=== PATIENT | male | born 1960 | race Caucasian/White ===

== ENCOUNTER → 2024-06-01 13:12 | Outpatient (REF) | payer MEDICARE, SELFPAY | LOC: ANHLAB 13:12 | PROVIDERS: Visit Provider Plastic Surgery | DX: D03.4 Melanoma in situ of scalp and neck (principal) | CPT/HCPCS: 88305 ==

== ENCOUNTER 2024-11-11 12:29 | Outpatient (NON) | payer MEDICARE, SELFPAY ==
--- OUTSIDE RECORDS SUMMARY | 2024-11-12 12:50 | XMS_ITS | Continuity of Care Document ---
Author Organization [facility] Address [address] [place] [address] Phone Care Team Providers Care Cold Roll Inspector Name Role Phone Sindhu Garza DO Unavailable Unavailable Allergies, Adverse Reactions, Alerts Substance Reaction Status Criticality No Known Drug Allergies Active No I nformation Medications Medication Instructions Dosage Effective Dates (start - stop) Status Comments No Drug Therapy Prescribed Procedures Procedure Date Audiometric Test DOT Exam Audiometric Test RTW Exam Audiometric Test Advance Directives Directive Yes / No Effective Date File Name No Information Encounters Encounter Description Practice Location Reason(s) For Visit Diagnoses Date Provider Providers Copied on Encounter [facility], [address] [place] [address], [id number], tel:[phone] [facility] Audiogram (chief complaint) Encounter for other administrative examinations 6 Greg Manley. [address] [facility], [address], [id number] , [place]. tel: [phone] [facility], [address] [place] [address], [id number], [place] tel:[phone] [facility] Occupational Health Examination 5 Greg Manley. [address] [facility], [facility] [address], [place], [id number] , [place]. tel: [phone] [facility], [address] [place] [address], [id number], [phone] [facility] Occupational [facility] Examination 1- 5 Greg Manley. [address] [facility], [address], [place], [place], [id number] , . tel: [phone] [facility], [address] [facility] [address], [place], [id number], tel:[phone] [facility] Occupational Health Examination 5 Greg Manley. [address] [facility], [address], [place], [place], [id number] , [place]. tel: [phone] [facility], [address], [id number], tel:[phone] [facility] Occupational Health Examination 4 Greg Manley. [address] [facility], [place] [address], [place], [place], [id number] , . tel: [phone] Family History Family Member Type Diagnosis Age At Onset Problem (finding) Family history of Arthr itis Mother Problem (finding) renal stone Father Problem (finding) malignant neoplasm of l tomy Payers Payer name Insurance type Covered alliance party ID Thi plasencia(s) I WC [id number] Social History Type Description Quantity Date Captured Comments Alcohol Use Details Caffeine Use Details Unknown Tobacco Use Status No Information Smoking Status Former smoker Smoking Tobacco Use Details Cigar: No Details Available Cigar: No Details Available Non-Smoking Tobacco Use Details Chewing: No Details Available Chewing: No Details Available Sex Male Chief Complaint And Reason For Visit From encounter dated '02/16/2016 08:30'. Audiogram (chief complaint) Reason For Referral Reason For Referral No Information History Of Present Illness Encounter Date Complaint History Of Prese nt Illness Audiogram Functional Status Date Functional Assessmen t No Information Medications Administered Medication Instructions Dosage Effective Dates (start - stop) Status Comments No Drug Therapy Prescribed Instructions Date Instruction Additional Infor mation No Information Assessments Type Assessment Date assessment Encounter for other administrati ve examinations Patient Care Teams Name Effective Dates (start - stop) Status Members No Information
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
--- OUTSIDE RECORDS SUMMARY | 2024-11-12 12:50 | XMS_ITS | Clinical Summary ---
Author Organization [facility] Address [address] [place] [address] Phone Care Team Providers Care Media Intern Name Role Phone Paulette Oviedo Primary Care Provider [phone] Allergies Active Allergy Reactions Criticality Noted Date Comments Chlorhexidine Rash 08/23/2016 Medications traMADol (ULTRAM) 50 MG Tablet Take 1 Tab by mouth 2 times daily. 60 Tab 7 Active Additional Information Patient not taking.Reported on 10/26/2021 lansoprazole (PREVACID) 15 MG CAPSULE DELAYED RELEASE Take 1 Cap by mouth daily. 90 Cap 3 7 Active Additional Information Patient not taking.Reported on 05/02/2022 Meloxicam 15 MG Tablet TAKE 1 TABLET DAILY 90 Tab 8 Active rosuvastatin (CRESTOR) 20 MG Tablet Take 1 Tab by mouth daily. 90 Tab 8 Active fluticasone (FLONASE) 50 MCG/ACT Suspension USE 1-2 SPRAYS IN EACH NOSTRIL DAILY 1 Bottle 8 Active Additional Information Patient not taking.Reported on 05/02/2022 cholecalciferol 25 mcg Tablet Take 1,000 Units by mouth. 9 Active lisinopril (PRINIVIL, ZESTRIL) 5 MG Tablet 2 Active acetaminophen (TYLENOL) 325 MG Tablet Take 650 mg by mouth. 0 Active Active Problems Problem Noted Date Diagnosed Date Chronic pain of right ankle 08/23/2016 Overview (08/23/2016): Dr. Holland Kidney stones 08/23/2016 High cholesterol Acid reflux Immunizations Immunization Administration Dates Next Due Influenza Vaccine,unspecified Formulation 2008 TDAP Vaccine 12/05/2019() Family History Medical History Relation Name Comments Emphysema Father Hypertension Mother Relation Name Status Comments Father Mother Alive Social History Tobacco Use Types Packs/Day Years Used Date Smoking Tobacco: Never Smokeless Tobacco: Former Chew Tobacco Cessation:Counseling Given: Not Answered Alcohol Use Standard Drinks/Week Comments Yes 14 (1 standard drink = 0.6 oz pu re alcohol) Sexually Active Control Partners Comments Yes Female Sex and Gender Information Value Date Recorded Sex Assigned at Not on file Legal Sex Male 7:49 PM CDT Gender Identity Not on file Sexual Orientation Not on file Last Filed Vital Signs Vital Sign Reading Time Taken Comments Blood Pressure 132/78 10/31/2022 9:05 AM MANAGER DIESEL Pulse 96 10/31/2022 9:05 AM MANAGER DIESEL Temperature 36.2 C (97.2 F) 10/31/2022 9:05 AM MANAGER DIESEL Respiratory Rate 18 10/31/2022 9:05 AM MANAGER DIESEL Oxygen Saturation 96% 10/31/2022 9:05 AM MANAGER DIESEL Inhaled Oxygen Concentration - - Weight 83.9 kg (185 lb) 10/31/2022 9:05 AM MANAGER DIESEL Height 180.3 cm (5' 11 ) 10/31/2022 9:05 AM MANAGER DIESEL Body Mass Index 25.8 10/31/2022 9:05 AM MANAGER DIESEL Plan of Treatment Health Maintenance Due Date Last Done Comments Hepatitis C Virus (HCV) Screening 1959 Cologuard 2009 Immunochemical Fecal Occult Blood 2009 Pneumococcal Immunization (50+ years) (1 of 1 - PCV) 2009 Colonoscopy 11/16/2022 11/16/2012 Colorectal Cancer Screening 11/16/2022 Influenza Immunization (#1) 2024 11/0 01/2020, 07/02/2019, 06/20/2019, Additional history exists SARS-COV-2 Immunization (3 - 2023- season) 2024 01/16/2021, 12/26/2020 Respiratory Syncytial Virus (RSV) Immunization (Adult) (1 - 1-dose 75+ series) 2034 11/16/2012 TdaP Immunization Completed 12/05/2019, 04/22/2019 Zoster Immunization Completed 09/12/2020, 0 PSA Discussion Completed 10/31/2022, 11/06, 09/10/2016, Additional history exists Hepatitis B Immunization Aged Out No longer eligible based on patient's age to complete this topic Meningococcal Immunization (ACWY) Aged Out No longer eligible based on patient's age to complete this topic Rotavirus Immunization Aged Out No lo nger eligible based on patient's age to complete this topic Procedures Procedure Name Priority Date/Time Associated Diagnosis Comments PSA DIAGNOSTIC,TOTAL Routine 10/31/2022 9:39 AM MANAGER DIESEL Prostate cancer screening COLONOSCOPY Routine 11/16/2012 from Last 3 Months or Most Recently Relevant to Health Maintenance Results * PSA DIAGNOSTIC,TOTAL (10/31/2022 9:39 AM MANAGER DIESEL) PSA, TOTAL (PROSTATIC SPECIFIC ANTIGEN) 2.03 <=4.00 ng/mL 10/31/2022 10:21 AM MANAGER DIESEL [facility] Blood Venipuncture / Unknown 10/31/2022 9:39 AM MANAGER DIESEL 10/31/2022 9:47 AM MANAGER DIESEL Narrative [facility] - 10/31/2022 10:21 AM MANAGER DIESEL PSA NOTE: The PSA value should be used in conjunction with information available from clinical evaluation and other diagnostic procedures. Ankush Guo MD CHEMISTRY ORDERABLES Final Resul t [facility] [address] [place] [address] * COLONOSCOPY (11/16/2012) us Mitchell Morris Jr., MD PROCEDURE/M INOR SURGICAL ORDERABLES Edited Result - Final from Last 3 Months or Most Recently Relevant to Health Maintenance Insurance MEDICARE C [employer]ET[employer] Advance Directives Documents on File Type Date Recorded Patient Hide Inspector And Sorter Expl anation Advance Care Planning Discussion 10/26/2021 11:19 AM TY FROM [facility] Care Teams Media Intern Relationship Specialty Start Date End Date Paulette Oviedo DO [address] [place] [address] [place] [address] PCP - General Family Medicine 08/01/21
--- OUTSIDE RECORDS SUMMARY | 2024-11-12 12:50 | XMS_ITS | Clinical Summary ---
Author Organization [facility] Address [address] [place] [address] Care Team Providers Care Stripping Machine Operator Name Role Phone Paulette Oviedo DO Primary Care Provider [phone] Source Comments [facility],non-owned Affiliates and Associated Physician Practices is amultiple site organization consisting of ambulatory clinics and hospital sitesin [place], [place], [place] and [place]. This disclosure is being madepursuant to the Care Everywhere program and may not contain all information available regarding this patient. Last updated 18.[facility] Allergies Active Allergy Reactions Criticality Noted Date [...] Comments Blood Pressure 140/87 07/18/2020 8:34 AM VICE PRESIDENT OF COMMUNICATIONS Pulse 111 07/18/2020 8:34 AM VICE PRESIDENT OF COMMUNICATIONS Temperature 36.5 C (97.7 F) 07/18/2020 8:34 AM VICE PRESIDENT OF COMMUNICATIONS Respiratory Rate 19 07/18/2020 8:34 AM VICE PRESIDENT OF COMMUNICATIONS Oxygen Saturation 98% 07/18/2020 8:34 AM VICE PRESIDENT OF COMMUNICATIONS Inhaled Oxygen Concentration 50% 12/06/2019 1 0:50 AM CDT Weight 91.3 kg (201 lb 3.2 oz) 07/18/2020 8:34 A M VICE PRESIDENT OF COMMUNICATIONS Height 177.8 cm (5' 10 ) 07/18/2020 8:34 AM VICE PRESIDENT OF COMMUNICATIONS Body Mass Index 28.87 07/18/2020 8:34 AM VICE PRESIDENT OF COMMUNICATIONS Plan of Treatment Health Maintenance Due Date Last Done Comments COLOGUARD (AGES 45-75) - COLON CA SCREENING 1959 COLON MONITORING 1959 COLONOSCOPY - COLON CA SCREENING 1959 CT COLONOGRAPHY - COLON CA SCREENING 1959 Colorectal Cancer Screening 1959 FIT - COLON CA SCREENING 1959 FLEX SIG - COLON CA SCREENING 1959 HIV SCREENING 1974 HEPATITIS C SCREENING 07/19/1977 PNEUMOCOCCAL VACCINE 50+ (1 of 1 - PCV) 2009 ZOSTER VACCINE (1 of 2) 2009 SCREENING FOR DIABETES 12/07/2022 0, 12/07/2019, 12/07/2019, Additional history exists COVID-19 VACCINE (1 - 2023- season) 2024 INFLUENZA VACCINE (#1) 2024 0, 07/02/2019, 06/08/2018, Additional history exists DEPRESSION SCREENING 09/08/2024 MEDICARE AWV CALENDAR YEAR 2024 DTAP/TDAP/TD VACCINES (2 - Td or Tdap) 12/04/2029 12/05/2019 Respiratory Syncytial Virus (RSV) Vaccine Pt: or over 60 yrs (1 - 1-dose 75+ series) 2034 HEPATITIS B VACCINE Aged Out No longe r eligible based on patient's age to complete this topic HIB VACCINE Aged Out No longer eligi ble based on patient's age to complete this topic HPV VACCINE Aged Out No longer eligi ble based on patient's age to complete this topic MENINGOCOCCAL (Group B) VACCINE Aged Out No longer eligible based on patient's age to complete this topic MENINGOCOCCAL VACCINE Aged Out No siddharth ny eligible based on patient's age to complete this topic Procedures Procedure Name Priority Date/Time Associated Diagnosis Comments BASIC METABOLIC PANEL (CALCIUM TOTAL) Timed 12/08/2019 11:25 PM CDT from Last 3 Months or Most Recently Relevant to Health Maintenance Results * BASIC METABOLIC PANEL (CALCIUM TOTAL) (12/08/2019 11:25 PM CDT) BUN 7 7 - 26 mg/dL 12/08/2019 11:59 PM [facility] Creatinine 0.7 0.6 - 1.2 mg/dL 12/08/2019 11:59 PM [facility] Sodium 141 136 - 145 mmol/L 12/08/2019 11:59 PM [facility] Potassium 3.7 3.5 - 4.5 mmol/L 12/08/2019 11:59 PM [facility] Chloride 105 98 - 107 mmol/L 12/08/2019 11:59 PM [facility] CO2 24 22 - 29 mmol/L 12/08/2019 11:59 PM [facility] Glucose 104 70 - 115 mg/dL 12/08/2019 11:59 PM [facility] Calcium 8.8 8.4 - 10.2 mg/dL 12/08/2019 11:59 PM [facility] Anion Gap 16 8 - 18 12/08/2019 11:59 PM [facility] BUN/Creatinine Ratio 10 7 - 23 12/08/2019 11:59 PM [facility] Osmolality Calculated 290 270 - 300 mOsm/kg 12/08/2019 11:59 PM [facility] eGFR >60 >60 mL/min/1.7 3 m2 12/08/2019 11:59 PM CDT [facility] Blood BLOOD SPECIMEN / Unknown Lab Venipuncture / Unknown 12/08/2019 11:25 PM CDT 12/08/2019 11:36 PM CDT Trena Harrell MD LAB - CHEMISTRY [place] [facility] Organization Address City/State/ZIP Co de Phone Number [facility] [address] [phone] from Last 3 Months or Most Recently Relevant to Health Maintenance Advance Directives * Full Code (Latest Code Status on File) Date Activated Date Inactivated Comments 12/05/2019 9:26 PM 12/09/2019 4:44 PM Care Teams Stripping Machine Operator Relationship Specialty Start Date End Date Paulette Oviedo DO [facility] - General 01/18/20
--- OUTSIDE RECORDS SUMMARY | 2024-11-12 12:50 | XMS_ITS | CONTINUITY OF CARE DOCUMENT ---
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 Name Role Phone Shree LÓPEZ, Reynaldo Unavailable ANT WHITE MD Unavailable Cristian Jimenez MD Unavailable PROBLEMS Condition Status Date Provider Notes Cardiology examination active Reynaldo Swann MD Hyperlipidemia active Reynaldo Swann MD Hypertension active Reynaldo Swann MD Dyspnea on exertion active Reynaldo Swann MD Coronary arteriosclerosis active Reynaldo brown MD ENCOUNTERS Date Type Provider Location Encounter Diag nosis - In-person encounter Office Visit Reynaldo Swann MD [facility] - In-person encounter Office Visit Reynaldo Swann MD [facility] Coronary arteriosclerosis - In-person encounter Office Visit Reynaldo Swann MD [facility] Cardiology examinationHyperlipidemiaHypertensionDyspnea on exertion VITAL SIGNS Date Observation Value Provider Body Mass Index (Ratio) 26.50 kg/m2 Schuyler Swann MD blood pressure, cuff size regular Dayo Miller blood pressure, diastolic 84 mm[Hg] Dayo Miller blood pressure, systolic 120 mm[Hg] Tab alisha Miller oxygen saturation, oximetry 97 % Ana Paula Miller pulse rate 96 /min Ana Paula Miller weight E&M 190 [lb_av] Ana Paula Miller respiratory rate E&M 12 /min Ana Paula Miller height E&M 71 [in_i] Ana Paula Miller Body Mass Index (Ratio) 27.05 kg/m2 Rafaela Morrison blood pressure, cuff size large An manuel Jonah blood pressure, diastolic 81 mm[Hg] An manuel Jonah blood pressure, systolic 138 mm[Hg] Emiliana liu Jonah oxygen saturation, oximetry 96 % Bernice Jonah pulse rate 73 /min Bernice Jonah weight E&M 194 [lb_av] Bernice Jonah height E&M 71 [in_i] Bernicenoe Mckenzie Body Mass Index (Ratio) 27.47 kg/m2 Schuyler Swann MD blood pressure, diastolic 82 mm[Hg] [facility] blood pressure, systolic 132 mm[Hg] [facility] blood pressure, diastolic 82 mm[Hg] [facility] blood pressure, systolic 132 mm[Hg] Jes[facility] blood pressure, diastolic 82 mm[Hg] elizabeth Bocanegra blood pressure, systolic 132 mm[Hg] She fabiana Bocanegra blood pressure, cuff size regular elizabeth Bocanegra oxygen saturation, oximetry 98 % Nena Bocanegra pulse rate 75 /min Nena Bocanegra respiratory rate E&M 18 /min Nena Bocanegra height E&M 71 [in_i] Nena Bocanegra weight E&M 197 [lb_av] Nena Bocanegra ALLERGIES Allergy Name Onset Date Reaction Criticality Status HIBICLENS High Criticality active HISTORY OF MEDICATION USE Medication Status Instructions Dates Provider Indications Com ments rosuvastatin 20 mg tablet active Take 1 tablet by mouth once a day Ana Paulanoe Miller allopurinol 300 mg tablet active TAKE 1 TABLET BY MOUTH ONCE EVERY DAY Ana Paula Miller lisinopril 5 mg tablet active TAKE 1 TABLET BY MOUTH EVERY DAY Ana Paula meloxicam 15 mg tablet active TAKE 1 TABLET BY MOUTH EVERY DAY NEEDED Ana Paula Paul SOCIAL HISTORY Date Observation Value Provider passive cigarette sm viktoria exposure no Reynaldo Swann MD smoking status Never smoker Reynaldo Swann MD passive cigarette sm viktoria exposure no Reynaldo Swann MD social history E&M Marital Statu s: Hoang moreno: 2 O ccupation: Retired Smoking History: P atann has never smoked. Reynaldo Swann MD social history reviewed E&M revi ewed - no changes required Reynaldo Swann MD smoking status Never smoker Bernice Mckenzie social history E&M Marital Statu s: Hoang moreno: 2 O ccupation: Retired Smoking History: P atann has never smoked. Reynaldo Swann MD social history reviewed E&M revi ewed - no changes required Reynaldo Swann MD Surgical History of - Tonsillectomy Surgical History of - Tonsillectomy Reynaldo Swann MD smoking status Never smoker Nena Bocanegra FAMILY HISTORY Family Member Condition Father Family History of Co ronary Artery Disease: INSURANCE PROVIDERS Payer name Policy type / Coverage type [employer] party ID [employer] [place] PPO Commercial [facility] [id number] ADVANCE DIRECTIVES Name Date DISCUSSED - NO DECISION MADE TREATMENT PLAN Date Name Performer [id number],B, Reynaldo huddleston MD [id number],S, Reynaldo huddleston MD [id number],S,Minimal with good effort. Reynaldo Swann MD [id number],N,H as calcium score >1200, normal stress myoview, normal ECHO and has no symptoms at all. We discussed doing a cath, but at this point we will just continue medical management. His lipid profile is excellent. Reynaldo Swann MD [id number],S, Reynaldo huddleston MD [id number],S, Reynaldo huddleston MD [id number],N, Reynaldo huddleston MD Cardiology Reynaldo Swann MD Cardiology Reynaldo Swann MD Cardiology Reynaldo Swann MD Cardiology Reynaldo Swann MD Cardiology Reynaldo Swann MD Cardiology Reynaldo Swann MD Cardiology:Minimal with good eff ort. Reynaldo Swann MD Cardiology:Has calci um score >1200, normal stress myoview, normal ECHO and has no symptoms at all. We discussed doing a cath, but at this point we will just continue medical management. His lipid profile is excellent. Reynaldo Swann MD Cardiology Reynaldo Swann MD Cardiology Reynaldo Swann MD Cardiology Reynaldo Swann MD Date Name CT, Coronary Calcium Score Stress Exercise Card iolite Complete Echo HISTORY OF PROCEDURES Procedure Date Procedure Name Provider Procedure Notes S tatus EKG Reynaldo Swann MD complete d CT- Coronary CA score Reynaldo Swann MD completed EKG Reynaldo Swann MD complete d
--- OUTSIDE RECORDS SUMMARY | 2024-11-12 12:50 | XMS_ITS | Patient Health Summary ---
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 There are large calcified urinary stones in the inferior pole calyces of the left kidney. An obstructing stone is not identified and ureteropelvic junction. IMPRESSION: 1. Acute left frontotemporal subarachnoid hemorrhage with no significant mass effect or midline shift. 2. Extensive left facial/temporal fractures and soft tissue swelling as described above. 3. No evidence of acute fracture in the cervical, thoracic, or lumbar spine. 4. Left renal hydronephrosis apparently due to ureteropelvic junction stenosis. There are large urinary stones in the inferior pole calyces of left kidney. Please see concurrent CT chest abdomen pelvis report for further information. Preliminary results discussed with Dr. Galdamez by Dr. English at 7:51 PM 12/05/2019. Report dictated by Cedric Churchill MD (radiology physician). I, Dr. BRENDA COPPOLA have personally reviewed and interpreted this examination/study. This report was electronically signed by BRENDA COPPOLA on 12/06/2019 11:26 AM . ADDENDUM #1 The reported compression defect of superior endplate of T3 in the body of the report is a shallow Schmorl's node. This was discussed with Dr. Daley from trauma. This report was electronically signed by BRENDA COPPOLA on 12/06/2019 12:15 PM . Impressions 12/06/2019 11:26 AM CDT IMPRESSION: 1. Acute left frontotemporal subarachnoid hemorrhage with no significant mass effect or midline shift. 2. Extensive left facial/temporal fractures and soft tissue swelling as described above. 3. No evidence of acute fracture in the cervical, thoracic, or lumbar spine. 4. Left renal hydronephrosis apparently due to ureteropelvic junction stenosis. There are large urinary stones in the inferior pole calyces of left kidney. Please see concurrent CT chest abdomen pelvis report for further information. Preliminary results discussed with Dr. Galdamez by Dr. English at 7:51 PM 12/05/2019. Report dictated by Cedric Churchill MD (radiology physician). I, Dr. BRENDA COPPOLA have personally reviewed and interpreted this examination/study. This report was electronically signed by BRENDA COPPOLA on 12/06/2019 11:26 AM . Narrative 12/06/2019 11:26 AM CDT EXAMINATION: 1. COMPUTED TOMOGRAPHY (CT) OF THE HEAD WITHOUT CONTRAST 2. CT OF THE MAXILLOFACIAL BONES WITHOUT CONTRAST 3. CT OF THE TEMPORAL BONES WITHOUT CONTRAST 4. CT OF THE CERVICAL SPINE WITHOUT CONTRAST 5. CT OF THE THORACIC SPINE WITHOUT CONTRAST 6. CT OF THE LUMBAR SPINE WITHOUT CONTRAST HISTORY: Trauma TECHNIQUE: CT of the head, cervical spine and temporal bones as well as maxillofacial bones, orbits, and paranasal sinuses was performed without contrast according to standard protocol. Reformatted axial, sagittal, and coronal images of the thoracic and lumbar spine were obtained by the technologist from a concurrently performed body CT and sent to the workstation for review. COMPARISON: No prior study is available for comparison at the time of this dictation. FINDINGS: HEAD: Moderate volume subarachnoid hemorrhage is seen in the left frontotemporal sulci and the left sylvian fissure extending to left ambient cistern. There is associated extensive left facial and scalp soft tissue swelling and hematoma as well as gas with underlying facial bone fractures. The ventricles are of normal size, shape, and morphology. The basal cisterns are patent. No mass effect or midline shift is seen. The novoa-white matter differentiation is normal. Periventricular white matter hypoattenuation is minimal, suggestive of senescent changes. Facial fractures and left frontal sinus fractures are described in the maxillofacial section. MAXILLOFACIAL: Extensive facial bone fractures including fractures of the anterior and posterior blue of the left frontal sinus; superior, lateral, medial and inferior blue of the left orbit; anterior and lateral blue of the left maxillary sinus which are comminuted, zygomatic arch, left temporomandibular joint/mandibular fossa, articular tubercle and tympanic part of the left temporal bone, and the lateral aspect of the left maxillary air cells. There is overlying facial and left periorbital soft tissue hematoma and soft tissue gas. Tiny air bubble is seen adjacent to fractured superior left orbital wall in the left anterior cranial fossa. Frothy fluid with air-fluid level in bilateral maxillary sinuses likely represents hemorrhagic products. Extensive preseptal and left periorbital soft tissue swelling and hematoma is noted. The left mastoid air cells are partially opacified likely with hemorrhagic products. The right orbit and orbital contents are unremarkable. The hard palate, mandible, and right temporomandibular joints appear normal. The right mastoid air cells are clear. TEMPORAL BONES: On the right side, the external auditory canal and auricle appear normal. The mastoid air cells and the middle ear cavity including the middle ear ossicles appear normal. The bony labyrinth, internal auditory canal, and petrous apex appear normal. The carotid canal, jugular foramen, and course of the facial nerve appear normal. On the left side, there are fracture lines involving the petrous portion of the left temporal bone, lateral aspect of the mastoid process extending into the squamous part of the temporal bone, and the greater wing of the left sphenoid bone. The ossicles appear normal. There is no visible otic capsule involvement. Opacification of the left middle ear likely represents hemotympanum. The external auditory canal and auricle appear normal. The bony labyrinth, internal auditory canal appear normal. The carotid canal, jugular foramen, and course of the facial nerve appear normal. Left facial soft tissue swelling, hematoma, and gas are again seen. CERVICAL SPINE: The alignment is normal. Vertebral bodies are normal in height without evidence of acute fracture. The craniocervical junction is normal. The intervertebral disc spaces are normal in heights. No posterior disc herniation, blood in central canal or central canal stenosis is seen. The facets appear normal. The uncovertebral joints appear normal. No neural foraminal stenosis is seen. Patchy groundglass opacities are seen in the right upper lobe which may represent contusions in the setting of trauma or infection. Subcutaneous emphysema from facial fractures is seen extending into the neck. THORACIC SPINE: The alignment is normal. There is an age-indeterminate mild compression defect of the superior endplate of T3 vertebral body without evidence of retropulsion or evidence of instability. Schmorl's nodes, vacuum phenomena and degenerative disc disease are present at multiple levels. No posterior disc abnormality, blood in central canal or central canal stenosis is seen. The facets appear normal. No neural foraminal stenosis is seen. There is subsegmental atelectasis in the dependent portions of the lung bases and patchy groundglass opacities in the right upper lung bilateral lower lobes which may represent contusion in the setting of trauma versus infection. LUMBAR SPINE: The alignment is normal. There are bilateral chronic L5 pars defects without causing spondylolisthesis. Vertebral bodies are normal in height without evidence of acute fracture. There is mild degenerative disc disease. There is vacuum phenomenon at L5-S1. No posterior disc abnormality, central canal stenosis or lateral recess stenosis is seen. The facets appear normal. No neural foraminal stenosis is seen. Moderate left hydronephrosis and proximal left hydroureter with transition to normal caliber left ureter at ureteropelvic junction is identified. There are large calcified urinary stones in the inferior pole calyces of the left kidney. An obstructing stone is not identified and ureteropelvic junction. Procedure Note Brenda Coppola MD - 12/06/2019 EXAMINATION: 1. COMPUTED TOMOGRAPHY (CT) OF THE HEAD WITHOUT CONTRAST 2. CT OF THE MAXILLOFACIAL BONES WITHOUT CONTRAST 3. CT OF THE TEMPORAL BONES WITHOUT CONTRAST 4. CT OF THE CERVICAL SPINE WITHOUT CONTRAST 5. CT OF THE THORACIC SPINE WITHOUT CONTRAST 6. CT OF THE LUMBAR SPINE WITHOUT CONTRAST HISTORY: Trauma TECHNIQUE: CT of the head, cervical spine and temporal bones as well as maxillofacial bones, orbits, and paranasal sinuses was performed without contrast according to standard protocol. Reformatted axial, sagittal,and coronal images of the thoracic and lumbar spine were obtained by the technologist from a concurrently performed body CT and sent to the workstation for review. COMPARISON: No prior study is available for comparison at the time ofthis dictation. FINDINGS: HEAD: Moderate volume subarachnoid hemorrhage is seen in the leftfrontotemporal sulci and the left sylvian fissure extending to left ambient cistern. There is associated extensive left facial and scalp soft tissue swelling and hematoma as well as gas with underlying facial bone fractures. The ventricles are of normal size, shape, and morphology. The basal cisterns are patent. No mass effect or midline shift is seen. The novoa-white matter differentiation is normal. Periventricular whitematter hypoattenuation is minimal, suggestive of senescent changes. Facial fractures and left frontal sinus fractures are described in the maxillofacial section. MAXILLOFACIAL: Extensive facial bone fractures including fractures of the anterior and posterior blue of the left frontal sinus; superior, lateral, medial and inferior blue of the left orbit; anterior and lateral blue of the left maxillary sinus which are comminuted, zygomatic arch, left temporomandibular joint/mandibular fossa, articular tubercle andtympanic part of the left temporal bone, and the lateral aspect of the left maxillary air cells. There is overlying facial and left periorbital soft tissue hematoma and soft tissue gas. Tiny air bubble is seen adjacent to fractured superior left orbital wall in the left anterior cranial fossa. Frothy fluid with air-fluid level in bilateral maxillary sinuses likely represents hemorrhagic products. Extensive preseptal and leftperiorbital soft tissue swelling and hematoma is noted. The left mastoid air cellsare partially opacified likely with hemorrhagic products. The right orbitand orbital contents are unremarkable. The hard palate, mandible, and right temporomandibular joints appear normal. The right mastoid air cells are clear. TEMPORAL BONES: On the right side, the external auditory canal and auricle appearnormal. The mastoid air cells and the middle ear cavity including the middle ear ossicles appear normal. The bony labyrinth, internal auditory canal, and petrous apex appear normal. The carotid canal, jugular foramen, andcourse of the facial nerve appear normal. On the left side, there are fracture lines involving the petrous portion of the left temporal bone, lateral aspect of the mastoid processextending into the squamous part of the temporal bone, and the greater wing of the left sphenoid bone. The ossicles appear normal. There is no visible otic capsule involvement. Opacification of the left middle ear likely represents hemotympanum. The external auditory canal and auricle appear normal. The bony labyrinth, internal auditory canal appear normal. The carotid canal, jugular foramen, and course of the facial nerve appear normal. Left facial soft tissue swelling, hematoma, and gas are again seen. CERVICAL SPINE: The alignment is normal. Vertebral bodies are normal in height without evidence of acute fracture. The craniocervical junction is normal. The intervertebral disc spaces are normal in heights. No posterior disc herniation, blood in central canal or central canal stenosis is seen.The facets appear normal. The uncovertebral joints appear normal. No neural foraminal stenosis is seen. Patchy groundglass opacities are seen in the right upper lobe which may represent contusions in the setting of trauma or infection. Subcutaneous emphysema from facial fractures is seen extending into the neck. THORACIC SPINE: The alignment is normal. There is an age-indeterminate mild compression defect of the superior endplate of T3 vertebral body without evidence of retropulsion or evidence of instability. Schmorl's nodes, vacuumphenomena and degenerative disc disease are present at multiple levels. Noposterior disc abnormality, blood in central canal or central canal stenosis is seen. The facets appear normal. No neural foraminal stenosis is seen. There is subsegmental atelectasis in the dependent portions of the lung bases and patchy groundglass opacities in the right upper lung bilateral lower lobes which may represent contusion in the setting of traumaversus infection. LUMBAR SPINE: The alignment is normal. There are bilateral chronic L5 pars defects without causing spondylolisthesis. Vertebral bodies are normal in height without evidence of acute fracture. There is mild degenerative disc disease. There is vacuum phenomenon at L5-S1. No posterior disc abnormality, central canal stenosis or lateral recess stenosis is seen. The facets appear normal. No neural foraminal stenosis is seen. Moderate left hydronephrosis and proximal left hydroureter with transition to normal caliber left ureter at ureteropelvic junction is identified.There are large calcified urinary stones in the inferior pole calyces of the left kidney. An obstructing stone is not identified and ureteropelvic junction. IMPRESSION: 1. Acute left frontotemporal subarachnoid hemorrhage with no significant mass effect or midline shift. 2. Extensive left facial/temporal fractures and soft tissue swelling as described above. 3. No evidence of acute fracture in the cervical, thoracic, or lumbar spine. 4. Left renal hydronephrosis apparently due to ureteropelvic junction stenosis. There are large urinary stones in the inferior pole calyces of left kidney. Please see concurrent CT chest abdomen pelvis report for further information. Preliminary results discussed with Dr. Galdamez by Dr. English at7:51 PM 12/05/2019. Report dictated by Cedric Churchill MD (radiology physician). I, Dr. BRENDA COPPOLA have personally reviewed and interpreted this examination/study. This report was electronically signed by BRENDA COPPOLA on 12/06/201911:26 AM . Jaclyn Galdamez MD CT ORDERABLES * CT LUMBAR SPINE WO CONTRAST - T/L-spine trauma, Spine fracture (12/05/2019 7:26 PM CDT) Anatomical Region Laterality Modality Spine Computed Tomogra phy 12/06/2019 7:23 AM CDT Addenda Addendum by Brenda Coppola MD on 12/06/2019 12:18 PM CDT ORIGINAL REPORT EXAMINATION: 1. COMPUTED TOMOGRAPHY (CT) OF THE HEAD WITHOUT CONTRAST 2. CT OF THE MAXILLOFACIAL BONES WITHOUT CONTRAST 3. CT OF THE TEMPORAL BONES WITHOUT CONTRAST 4. CT OF THE CERVICAL SPINE WITHOUT CONTRAST 5. CT OF THE THORACIC SPINE WITHOUT CONTRAST 6. CT OF THE LUMBAR SPINE WITHOUT CONTRAST HISTORY: Trauma TECHNIQUE: CT of the head, cervical spine and temporal bones as well as maxillofacial bones, orbits, and paranasal sinuses was performed without contrast according to standard protocol. Reformatted axial, sagittal, and coronal images of the thoracic and lumbar spine were obtained by the technologist from a concurrently performed body CT and sent to the workstation for review. COMPARISON: No prior study is available for comparison at the time of this dictation. FINDINGS: HEAD: Moderate volume subarachnoid hemorrhage is seen in the left frontotemporal sulci and the left sylvian fissure extending to left ambient cistern. There is associated extensive left facial and scalp soft tissue swelling and hematoma as well as gas with underlying facial bone fractures. The ventricles are of normal size, shape, and morphology. The basal cisterns are patent. No mass effect or midline shift is seen. The novoa-white matter differentiation is normal. Periventricular white matter hypoattenuation is minimal, suggestive of senescent changes. Facial fractures and left frontal sinus fractures are described in the maxillofacial section. MAXILLOFACIAL: Extensive facial bone fractures including fractures of the anterior and posterior blue of the left frontal sinus; superior, lateral, medial and inferior blue of the left orbit; anterior and lateral blue of the left maxillary sinus which are comminuted, zygomatic arch, left temporomandibular joint/mandibular fossa, articular tubercle and tympanic part of the left temporal bone, and the lateral aspect of the left maxillary air cells. There is overlying facial and left periorbital soft tissue hematoma and soft tissue gas. Tiny air bubble is seen adjacent to fractured superior left orbital wall in the left anterior cranial fossa. Frothy fluid with air-fluid level in bilateral maxillary sinuses likely represents hemorrhagic products. Extensive preseptal and left periorbital soft tissue swelling and hematoma is noted. The left mastoid air cells are partially opacified likely with hemorrhagic products. The right orbit and orbital contents are unremarkable. The hard palate, mandible, and right temporomandibular joints appear normal. The right mastoid air cells are clear. TEMPORAL BONES: On the right side, the external auditory canal and auricle appear normal. The mastoid air cells and the middle ear cavity including the middle ear ossicles appear normal. The bony labyrinth, internal auditory canal, and petrous apex appear normal. The carotid canal, jugular foramen, and course of the facial nerve appear normal. On the left side, there are fracture lines involving the petrous portion of the left temporal bone, lateral aspect of the mastoid process extending into the squamous part of the temporal bone, and the greater wing of the left sphenoid bone. The ossicles appear normal. There is no visible otic capsule involvement. Opacification of the left middle ear likely represents hemotympanum. The external auditory canal and auricle appear normal. The bony labyrinth, internal auditory canal appear normal. The carotid canal, jugular foramen, and course of the facial nerve appear normal. Left facial soft tissue swelling, hematoma, and gas are again seen. CERVICAL SPINE: The alignment is normal. Vertebral bodies are normal in height without evidence of acute fracture. The craniocervical junction is normal. The intervertebral disc spaces are normal in heights. No posterior disc herniation, blood in central canal or central canal stenosis is seen. The facets appear normal. The uncovertebral joints appear normal. No neural foraminal stenosis is seen. Patchy groundglass opacities are seen in the right upper lobe which may represent contusions in the setting of trauma or infection. Subcutaneous emphysema from facial fractures is seen extending into the neck. THORACIC SPINE: The alignment is normal. There is an age-indeterminate mild compression defect of the superior endplate of T3 vertebral body without evidence of retropulsion or evidence of instability. Schmorl's nodes, vacuum phenomena and degenerative disc disease are present at multiple levels. No posterior disc abnormality, blood in central canal or central canal stenosis is seen. The facets appear normal. No neural foraminal stenosis is seen. There is subsegmental atelectasis in the dependent portions of the lung bases and patchy groundglass opacities in the right upper lung bilateral lower lobes which may represent contusion in the setting of trauma versus infection. LUMBAR SPINE: The alignment is normal. There are bilateral chronic L5 pars defects without causing spondylolisthesis. Vertebral bodies are normal in height without evidence of acute fracture. There is mild degenerative disc disease. There is vacuum phenomenon at L5-S1. No posterior disc abnormality, central canal stenosis or lateral recess stenosis is seen. The facets appear normal. No neural foraminal stenosis is seen. Moderate left hydronephrosis and proximal left hydroureter with transition to normal caliber left ureter at ureteropelvic junction is identified. There are large calcified urinary stones in the inferior pole calyces of the left kidney. An obstructing stone is not identified and ureteropelvic junction. IMPRESSION: 1. Acute left frontotemporal subarachnoid hemorrhage with no significant mass effect or midline shift. 2. Extensive left facial/temporal fractures and soft tissue swelling as described above. 3. No evidence of acute fracture in the cervical, thoracic, or lumbar spine. 4. Left renal hydronephrosis apparently due to ureteropelvic junction stenosis. There are large urinary stones in the inferior pole calyces of left kidney. Please see concurrent CT chest abdomen pelvis report for further information. Preliminary results discussed with Dr. Galdamez by Dr. English at 7:51 PM 12/05/2019. Report dictated by Cedric Churchill MD (radiology physician). I, Dr. BRENDA COPPOLA have personally reviewed and interpreted this examination/study. This report was electronically signed by BRENDA COPPOLA on 12/06/2019 11:26 AM . ADDENDUM #1 The reported compression defect of superior endplate of T3 in the body of the report is a shallow Schmorl's node. This was discussed with Dr. Daley from trauma. This report was electronically signed by BRENDA COPPOLA on 12/06/2019 12:15 PM . Impressions 12/06/2019 11:26 AM CDT IMPRESSION: 1. Acute left frontotemporal subarachnoid hemorrhage with no significant mass effect or midline shift. 2. Extensive left facial/temporal fractures and soft tissue swelling as described above. 3. No evidence of acute fracture in the cervical, thoracic, or lumbar spine. 4. Left renal hydronephrosis apparently due to ureteropelvic junction stenosis. There are large urinary stones in the inferior pole calyces of left kidney. Please see concurrent CT chest abdomen pelvis report for further information. Preliminary results discussed with Dr. Galdamez by Dr. English at 7:51 PM 12/05/2019. Report dictated by Cedric Churchill MD (radiology physician). I, Dr. BRENDA COPPOLA have personally reviewed and interpreted this examination/study. This report was electronically signed by BRENDA COPPOLA on 12/06/2019 11:26 AM . Narrative 12/06/2019 11:26 AM CDT EXAMINATION: 1. COMPUTED TOMOGRAPHY (CT) OF THE HEAD WITHOUT CONTRAST 2. CT OF THE MAXILLOFACIAL BONES WITHOUT CONTRAST 3. CT OF THE TEMPORAL BONES WITHOUT CONTRAST 4. CT OF THE CERVICAL SPINE WITHOUT CONTRAST 5. CT OF THE THORACIC SPINE WITHOUT CONTRAST 6. CT OF THE LUMBAR SPINE WITHOUT CONTRAST HISTORY: Trauma TECHNIQUE: CT of the head, cervical spine and temporal bones as well as maxillofacial bones, orbits, and paranasal sinuses was performed without contrast according to standard protocol. Reformatted axial, sagittal, and coronal images of the thoracic and lumbar spine were obtained by the technologist from a concurrently performed body CT and sent to the workstation for review. COMPARISON: No prior study is available for comparison at the time of this dictation. FINDINGS: HEAD: Moderate volume subarachnoid hemorrhage is seen in the left frontotemporal sulci and the left sylvian fissure extending to left ambient cistern. There is associated extensive left facial and scalp soft tissue swelling and hematoma as well as gas with underlying facial bone fractures. The ventricles are of normal size, shape, and morphology. The basal cisterns are patent. No mass effect or midline shift is seen. The novoa-white matter differentiation is normal. Periventricular white matter hypoattenuation is minimal, suggestive of senescent changes. Facial fractures and left frontal sinus fractures are described in the maxillofacial section. MAXILLOFACIAL: Extensive facial bone fractures including fractures of the anterior and posterior bule of the left frontal sinus; superior, lateral, medial and inferior blue of the left orbit; anterior and lateral blue of the left maxillary sinus which are comminuted, zygomatic arch, left temporomandibular joint/mandibular fossa, articular tubercle and tympanic part of the left temporal bone, and the lateral aspect of the left maxillary air cells. There is overlying facial and left periorbital soft tissue hematoma and soft tissue gas. Tiny air bubble is seen adjacent to fractured superior left orbital wall in the left anterior cranial fossa. Frothy fluid with air-fluid level in bilateral maxillary sinuses likely represents hemorrhagic products. Extensive preseptal and left periorbital soft tissue swelling and hematoma is noted. The left mastoid air cells are partially opacified likely with hemorrhagic products. The right orbit and orbital contents are unremarkable. The hard palate, mandible, and right temporomandibular joints appear normal. The right mastoid air cells are clear. TEMPORAL BONES: On the right side, the external auditory canal and auricle appear normal. The mastoid air cells and the middle ear cavity including the middle ear ossicles appear normal. The bony labyrinth, internal auditory canal, and petrous apex appear normal. The carotid canal, jugular foramen, and course of the facial nerve appear normal. On the left side, there are fracture lines involving the petrous portion of the left temporal bone, lateral aspect of the mastoid process extending into the squamous part of the temporal bone, and the greater wing of the left sphenoid bone. The ossicles appear normal. There is no visible otic capsule involvement. Opacification of the left middle ear likely represents hemotympanum. The external auditory canal and auricle appear normal. The bony labyrinth, internal auditory canal appear normal. The carotid canal, jugular foramen, and course of the facial nerve appear normal. Left facial soft tissue swelling, hematoma, and gas are again seen. CERVICAL SPINE: The alignment is normal. Vertebral bodies are normal in height without evidence of acute fracture. The craniocervical junction is normal. The intervertebral disc spaces are normal in heights. No posterior disc herniation, blood in central canal or central canal stenosis is seen. The facets appear normal. The uncovertebral joints appear normal. No neural foraminal stenosis is seen. Patchy groundglass opacities are seen in the right upper lobe which may represent contusions in the setting of trauma or infection. Subcutaneous emphysema from facial fractures is seen extending into the neck. THORACIC SPINE: The alignment is normal. There is an age-indeterminate mild compression defect of the superior endplate of T3 vertebral body without evidence of retropulsion or evidence of instability. Schmorl's nodes, vacuum phenomena and degenerative disc disease are present at multiple levels. No posterior disc abnormality, blood in central canal or central canal stenosis is seen. The facets appear normal. No neural foraminal stenosis is seen. There is subsegmental atelectasis in the dependent portions of the lung bases and patchy groundglass opacities in the right upper lung bilateral lower lobes which may represent contusion in the setting of trauma versus infection. LUMBAR SPINE: The alignment is normal. There are bilateral chronic L5 pars defects without causing spondylolisthesis. Vertebral bodies are normal in height without evidence of acute fracture. There is mild degenerative disc disease. There is vacuum phenomenon at L5-S1. No posterior disc abnormality, central canal stenosis or lateral recess stenosis is seen. The facets appear normal. No neural foraminal stenosis is seen. Moderate left hydronephrosis and proximal left hydroureter with transition to normal caliber left ureter at ureteropelvic junction is identified. There are large calcified urinary stones in the inferior pole calyces of the left kidney. An obstructing stone is not identified and ureteropelvic junction. Procedure Note Brenda Coppola MD - 12/06/2019 EXAMINATION: 1. COMPUTED TOMOGRAPHY (CT) OF THE HEAD WITHOUT CONTRAST 2. CT OF THE MAXILLOFACIAL BONES WITHOUT CONTRAST 3. CT OF THE TEMPORAL BONES WITHOUT CONTRAST 4. CT OF THE CERVICAL SPINE WITHOUT CONTRAST 5. CT OF THE THORACIC SPINE WITHOUT CONTRAST 6. CT OF THE LUMBAR SPINE WITHOUT CONTRAST HISTORY: Trauma TECHNIQUE: CT of the head, cervical spine and temporal bones as well as maxillofacial bones, orbits, and paranasal sinuses was performed without contrast according to standard protocol. Reformatted axial, sagittal,and coronal images of the thoracic and lumbar spine were obtained by the technologist from a concurrently performed body CT and sent to the workstation for review. COMPARISON: No prior study is available for comparison at the time ofthis dictation. FINDINGS: HEAD: Moderate volume subarachnoid hemorrhage is seen in the leftfrontotemporal sulci and the left sylvian fissure extending to left ambient cistern. There is associated extensive left facial and scalp soft tissue swelling and hematoma as well as gas with underlying facial bone fractures. The ventricles are of normal size, shape, and morphology. The basal cisterns are patent. No mass effect or midline shift is seen. The novoa-white matter differentiation is normal. Periventricular whitematter hypoattenuation is minimal, suggestive of senescent changes. Facial fractures and left frontal sinus fractures are described in the maxillofacial section. MAXILLOFACIAL: Extensive facial bone fractures including fractures of the anterior and posterior blue of the left frontal sinus; superior, lateral, medial and inferior blue of the left orbit; anterior and lateral blue of the left maxillary sinus which are comminuted, zygomatic arch, left temporomandibular joint/mandibular fossa, articular tubercle andtympanic part of the left temporal bone, and the lateral aspect of the left maxillary air cells. There is overlying facial and left periorbital soft tissue hematoma and soft tissue gas. Tiny air bubble is seen adjacent to fractured superior left orbital wall in the left anterior cranial fossa. Frothy fluid with air-fluid level in bilateral maxillary sinuses likely represents hemorrhagic products. Extensive preseptal and leftperiorbital soft tissue swelling and hematoma is noted. The left mastoid air cellsare partially opacified likely with hemorrhagic products. The right orbitand orbital contents are unremarkable. The hard palate, mandible, and right temporomandibular joints appear normal. The right mastoid air cells are clear. TEMPORAL BONES: On the right side, the external auditory canal and auricle appearnormal. The mastoid air cells and the middle ear cavity including the middle ear ossicles appear normal. The bony labyrinth, internal auditory canal, and petrous apex appear normal. The carotid canal, jugular foramen, andcourse of the facial nerve appear normal. On the left side, there are fracture lines involving the petrous portion of the left temporal bone, lateral aspect of the mastoid processextending into the squamous part of the temporal bone, and the greater wing of the left sphenoid bone. The ossicles appear normal. There is no visible otic capsule involvement. Opacification of the left middle ear likely represents hemotympanum. The external auditory canal and auricle appear normal. The bony labyrinth, internal auditory canal appear normal. The carotid canal, jugular foramen, and course of the facial nerve appear normal. Left facial soft tissue swelling, hematoma, and gas are again seen. CERVICAL SPINE: The alignment is normal. Vertebral bodies are normal in height without evidence of acute fracture. The craniocervical junction is normal. The intervertebral disc spaces are normal in heights. No posterior disc herniation, blood in central canal or central canal stenosis is seen.The facets appear normal. The uncovertebral joints appear normal. No neural foraminal stenosis is seen. Patchy groundglass opacities are seen in the right upper lobe which may represent contusions in the setting of trauma or infection. Subcutaneous emphysema from facial fractures is seen extending into the neck. THORACIC SPINE: The alignment is normal. There is an age-indeterminate mild compression defect of the superior endplate of T3 vertebral body without evidence of retropulsion or evidence of instability. Schmorl's nodes, vacuumphenomena and degenerative disc disease are present at multiple levels. Noposterior disc abnormality, blood in central canal or central canal stenosis is seen. The facets appear normal. No neural foraminal stenosis is seen. There is subsegmental atelectasis in the dependent portions of the lung bases and patchy groundglass opacities in the right upper lung bilateral lower lobes which may represent contusion in the setting of traumaversus infection. LUMBAR SPINE: The alignment is normal. There are bilateral chronic L5 pars defects without causing spondylolisthesis. Vertebral bodies are normal in height without evidence of acute fracture. There is mild degenerative disc disease. There is vacuum phenomenon at L5-S1. No posterior disc abnormality, central canal stenosis or lateral recess stenosis is seen. The facets appear normal. No neural foraminal stenosis is seen. Moderate left hydronephrosis and proximal left hydroureter with transition to normal caliber left ureter at ureteropelvic junction is identified.There are large calcified urinary stones in the inferior pole calyces of the left kidney. An obstructing stone is not identified and ureteropelvic junction. IMPRESSION: 1. Acute left frontotemporal subarachnoid hemorrhage with no significant mass effect or midline shift. 2. Extensive left facial/temporal fractures and soft tissue swelling as described above. 3. No evidence of acute fracture in the cervical, thoracic, or lumbar spine. 4. Left renal hydronephrosis apparently due to ureteropelvic junction stenosis. There are large urinary stones in the inferior pole calyces of left kidney. Please see concurrent CT chest abdomen pelvis report for further information. Preliminary results discussed with Dr. Galdamez by Dr. English at7:51 PM 12/05/2019. Report dictated by Cedric Churchill MD (radiology physician). I, Dr. BRENDA COPPOLA have personally reviewed and interpreted this examination/study. This report was electronically signed by BRENDA COPPOLA on 12/06/201911:26 AM . Jaclyn Galdamez MD CT ORDERABLES * CT THORACIC SPINE WO CONTRAST - T/L-spine trauma, spine fracture (12/05/2019 7:26 PM CDT) Anatomical Region Laterality Modality Spine Computed Tomogra phy 12/06/2019 7:23 AM CDT Addenda Addendum by Brenda Coppola MD on 12/06/2019 12:18 PM CDT ORIGINAL REPORT EXAMINATION: 1. COMPUTED TOMOGRAPHY (CT) OF THE HEAD WITHOUT CONTRAST 2. CT OF THE MAXILLOFACIAL BONES WITHOUT CONTRAST 3. CT OF THE TEMPORAL BONES WITHOUT CONTRAST 4. CT OF THE CERVICAL SPINE WITHOUT CONTRAST 5. CT OF THE THORACIC SPINE WITHOUT CONTRAST 6. CT OF THE LUMBAR SPINE WITHOUT CONTRAST HISTORY: Trauma TECHNIQUE: CT of the head, cervical spine and temporal bones as well as maxillofacial bones, orbits, and paranasal sinuses was performed without contrast according to standard protocol. Reformatted axial, sagittal, and coronal images of the thoracic and lumbar spine were obtained by the technologist from a concurrently performed body CT and sent to the workstation for review. COMPARISON: No prior study is available for comparison at the time of this dictation. FINDINGS: HEAD: Moderate volume subarachnoid hemorrhage is seen in the left frontotemporal sulci and the left sylvian fissure extending to left ambient cistern. There is associated extensive left facial and scalp soft tissue swelling and hematoma as well as gas with underlying facial bone fractures. The ventricles are of normal size, shape, and morphology. The basal cisterns are patent. No mass effect or midline shift is seen. The novoa-white matter differentiation is normal. Periventricular white matter hypoattenuation is minimal, suggestive of senescent changes. Facial fractures and left frontal sinus fractures are described in the maxillofacial section. MAXILLOFACIAL: Extensive facial bone fractures including fractures of the anterior and posterior blue of the left frontal sinus; superior, lateral, medial and inferior blue of the left orbit; anterior and lateral blue of the left maxillary sinus which are comminuted, zygomatic arch, left temporomandibular joint/mandibular fossa, articular tubercle and tympanic part of the left temporal bone, and the lateral aspect of the left maxillary air cells. There is overlying facial and left periorbital soft tissue hematoma and soft tissue gas. Tiny air bubble is seen adjacent to fractured superior left orbital wall in the left anterior cranial fossa. Frothy fluid with air-fluid level in bilateral maxillary sinuses likely represents hemorrhagic products. Extensive preseptal and left periorbital soft tissue swelling and hematoma is noted. The left mastoid air cells are partially opacified likely with hemorrhagic products. The right orbit and orbital contents are unremarkable. The hard palate, mandible, and right temporomandibular joints appear normal. The right mastoid air cells are clear. TEMPORAL BONES: On the right side, the external auditory canal and auricle appear normal. The mastoid air cells and the middle ear cavity including the middle ear ossicles appear normal. The bony labyrinth, internal auditory canal, and petrous apex appear normal. The carotid canal, jugular foramen, and course of the facial nerve appear normal. On the left side, there are fracture lines involving the petrous portion of the left temporal bone, lateral aspect of the mastoid process extending into the squamous part of the temporal bone, and the greater wing of the left sphenoid bone. The ossicles appear normal. There is no visible otic capsule involvement. Opacification of the left middle ear likely represents hemotympanum. The external auditory canal and auricle appear normal. The bony labyrinth, internal auditory canal appear normal. The carotid canal, jugular foramen, and course of the facial nerve appear normal. Left facial soft tissue swelling, hematoma, and gas are again seen. CERVICAL SPINE: The alignment is normal. Vertebral bodies are normal in height without evidence of acute fracture. The craniocervical junction is normal. The intervertebral disc spaces are normal in heights. No posterior disc herniation, blood in central canal or central canal stenosis is seen. The facets appear normal. The uncovertebral joints appear normal. No neural foraminal stenosis is seen. Patchy groundglass opacities are seen in the right upper lobe which may represent contusions in the setting of trauma or infection. Subcutaneous emphysema from facial fractures is seen extending into the neck. THORACIC SPINE: The alignment is normal. There is an age-indeterminate mild compression defect of the superior endplate of T3 vertebral body without evidence of retropulsion or evidence of instability. Schmorl's nodes, vacuum phenomena and degenerative disc disease are present at multiple levels. No posterior disc abnormality, blood in central canal or central canal stenosis is seen. The facets appear normal. No neural foraminal stenosis is seen. There is subsegmental atelectasis in the dependent portions of the lung bases and patchy groundglass opacities in the right upper lung bilateral lower lobes which may represent contusion in the setting of trauma versus infection. LUMBAR SPINE: The alignment is normal. There are bilateral chronic L5 pars defects without causing spondylolisthesis. Vertebral bodies are normal in height without evidence of acute fracture. There is mild degenerative disc disease. There is vacuum phenomenon at L5-S1. No posterior disc abnormality, central canal stenosis or lateral recess stenosis is seen. The facets appear normal. No neural foraminal stenosis is seen. Moderate left hydronephrosis and proximal left hydroureter with transition to normal caliber left ureter at ureteropelvic junction is identified. There are large calcified urinary stones in the inferior pole calyces of the left kidney. An obstructing stone is not identified and ureteropelvic junction. IMPRESSION: 1. Acute left frontotemporal subarachnoid hemorrhage with no significant mass effect or midline shift. 2. Extensive left facial/temporal fractures and soft tissue swelling as described above. 3. No evidence of acute fracture in the cervical, thoracic, or lumbar spine. 4. Left renal hydronephrosis apparently due to ureteropelvic junction stenosis. There are large urinary stones in the inferior pole calyces of left kidney. Please see concurrent CT chest abdomen pelvis report for further information. Preliminary results discussed with Dr. Galdamez by Dr. English at 7:51 PM 12/05/2019. Report dictated by Cedric Churchill MD (radiology physician). Dr. BRENDA Horton have personally reviewed and interpreted this examination/study. This report was electronically signed by BRENDA COPPOLA on 12/06/2019 11:26 AM . ADDENDUM #1 The reported compression defect of superior endplate of T3 in the body of the report is a shallow Schmorl's node. This was discussed with Dr. Daley from trauma. This report was electronically signed by BRENDA COPPOLA on 12/06/2019 12:15 PM . Impressions 12/06/2019 11:26 AM CDT IMPRESSION: 1. Acute left frontotemporal subarachnoid hemorrhage with no significant mass effect or midline shift. 2. Extensive left facial/temporal fractures and soft tissue swelling as described above. 3. No evidence of acute fracture in the cervical, thoracic, or lumbar spine. 4. Left renal hydronephrosis apparently due to ureteropelvic junction stenosis. There are large urinary stones in the inferior pole calyces of left kidney. Please see concurrent CT chest abdomen pelvis report for further information. Preliminary results discussed with Dr. Galdamez by Dr. English at 7:51 PM 12/05/2019. Report dictated by Cedric Churchill MD (radiology physician). Dr. BRENDA Horton have personally reviewed and interpreted this examination/study. This report was electronically signed by BRENDA COPPOLA on 12/06/2019 11:26 AM . Narrative 12/06/2019 11:26 AM CDT EXAMINATION: 1. COMPUTED TOMOGRAPHY (CT) OF THE HEAD WITHOUT CONTRAST 2. CT OF THE MAXILLOFACIAL BONES WITHOUT CONTRAST 3. CT OF THE TEMPORAL BONES WITHOUT CONTRAST 4. CT OF THE CERVICAL SPINE WITHOUT CONTRAST 5. CT OF THE THORACIC SPINE WITHOUT CONTRAST 6. CT OF THE LUMBAR SPINE WITHOUT CONTRAST HISTORY: Trauma TECHNIQUE: CT of the head, cervical spine and temporal bones as well as maxillofacial bones, orbits, and paranasal sinuses was performed without contrast according to standard protocol. Reformatted axial, sagittal, and coronal images of the thoracic and lumbar spine were obtained by the technologist from a concurrently performed body CT and sent to the workstation for review. COMPARISON: No prior study is available for comparison at the time of this dictation. FINDINGS: HEAD: Moderate volume subarachnoid hemorrhage is seen in the left frontotemporal sulci and the left sylvian fissure extending to left ambient cistern. There is associated extensive left facial and scalp soft tissue swelling and hematoma as well as gas with underlying facial bone fractures. The ventricles are of normal size, shape, and morphology. The basal cisterns are patent. No mass effect or midline shift is seen. The novoa-white matter differentiation is normal. Periventricular white matter hypoattenuation is minimal, suggestive of senescent changes. Facial fractures and left frontal sinus fractures are described in the maxillofacial section. MAXILLOFACIAL: Extensive facial bone fractures including fractures of the anterior and posterior blue of the left frontal sinus; superior, lateral, medial and inferior blue of the left orbit; anterior and lateral blue of the left maxillary sinus which are comminuted, zygomatic arch, left temporomandibular joint/mandibular fossa, articular tubercle and tympanic part of the left temporal bone, and the lateral aspect of the left maxillary air cells. There is overlying facial and left periorbital soft tissue hematoma and soft tissue gas. Tiny air bubble is seen adjacent to fractured superior left orbital wall in the left anterior cranial fossa. Frothy fluid with air-fluid level in bilateral maxillary sinuses likely represents hemorrhagic products. Extensive preseptal and left periorbital soft tissue swelling and hematoma is noted. The left mastoid air cells are partially opacified likely with hemorrhagic products. The right orbit and orbital contents are unremarkable. The hard palate, mandible, and right temporomandibular joints appear normal. The right mastoid air cells are clear. TEMPORAL BONES: On the right side, the external auditory canal and auricle appear normal. The mastoid air cells and the middle ear cavity including the middle ear ossicles appear normal. The bony labyrinth, internal auditory canal, and petrous apex appear normal. The carotid canal, jugular foramen, and course of the facial nerve appear normal. On the left side, there are fracture lines involving the petrous portion of the left temporal bone, lateral aspect of the mastoid process extending into the squamous part of the temporal bone, and the greater wing of the left sphenoid bone. The ossicles appear normal. There is no visible otic capsule involvement. Opacification of the left middle ear likely represents hemotympanum. The external auditory canal and auricle appear normal. The bony labyrinth, internal auditory canal appear normal. The carotid canal, jugular foramen, and course of the facial nerve appear normal. Left facial soft tissue swelling, hematoma, and gas are again seen. CERVICAL SPINE: The alignment is normal. Vertebral bodies are normal in height without evidence of acute fracture. The craniocervical junction is normal. The intervertebral disc spaces are normal in heights. No posterior disc herniation, blood in central canal or central canal stenosis is seen. The facets appear normal. The uncovertebral joints appear normal. No neural foraminal stenosis is seen. Patchy groundglass opacities are seen in the right upper lobe which may represent contusions in the setting of trauma or infection. Subcutaneous emphysema from facial fractures is seen extending into the neck. THORACIC SPINE: The alignment is normal. There is an age-indeterminate mild compression defect of the superior endplate of T3 vertebral body without evidence of retropulsion or evidence of instability. Schmorl's nodes, vacuum phenomena and degenerative disc disease are present at multiple levels. No posterior disc abnormality, blood in central canal or central canal stenosis is seen. The facets appear normal. No neural foraminal stenosis is seen. There is subsegmental atelectasis in the dependent portions of the lung bases and patchy groundglass opacities in the right upper lung bilateral lower lobes which may represent contusion in the setting of trauma versus infection. LUMBAR SPINE: The alignment is normal. There are bilateral chronic L5 pars defects without causing spondylolisthesis. Vertebral bodies are normal in height without evidence of acute fracture. There is mild degenerative disc disease. There is vacuum phenomenon at L5-S1. No posterior disc abnormality, central canal stenosis or lateral recess stenosis is seen. The facets appear normal. No neural foraminal stenosis is seen. Moderate left hydronephrosis and proximal left hydroureter with transition to normal caliber left ureter at ureteropelvic junction is identified. There are large calcified urinary stones in the inferior pole calyces of the left kidney. An obstructing stone is not identified and ureteropelvic junction. Procedure Note Brenda Coppola MD - 12/06/2019 EXAMINATION: 1. COMPUTED TOMOGRAPHY (CT) OF THE HEAD WITHOUT CONTRAST 2. CT OF THE MAXILLOFACIAL BONES WITHOUT CONTRAST 3. CT OF THE TEMPORAL BONES WITHOUT CONTRAST 4. CT OF THE CERVICAL SPINE WITHOUT CONTRAST 5. CT OF THE THORACIC SPINE WITHOUT CONTRAST 6. CT OF THE LUMBAR SPINE WITHOUT CONTRAST HISTORY: Trauma TECHNIQUE: CT of the head, cervical spine and temporal bones as well as maxillofacial bones, orbits, and paranasal sinuses was performed without contrast according to standard protocol. Reformatted axial, sagittal,and coronal images of the thoracic and lumbar spine were obtained by the technologist from a concurrently performed body CT and sent to the workstation for review. COMPARISON: No prior study is available for comparison at the time ofthis dictation. FINDINGS: HEAD: Moderate volume subarachnoid hemorrhage is seen in the leftfrontotemporal sulci and the left sylvian fissure extending to left ambient cistern. There is associated extensive left facial and scalp soft tissue swelling and hematoma as well as gas with underlying facial bone fractures. The ventricles are of normal size, shape, and morphology. The basal cisterns are patent. No mass effect or midline shift is seen. The novoa-white matter differentiation is normal. Periventricular whitematter hypoattenuation is minimal, suggestive of senescent changes. Facial fractures and left frontal sinus fractures are described in the maxillofacial section. MAXILLOFACIAL: Extensive facial bone fractures including fractures of the anterior and posterior blue of the left frontal sinus; superior, lateral, medial and inferior blue of the left orbit; anterior and lateral blue of the left maxillary sinus which are comminuted, zygomatic arch, left temporomandibular joint/mandibular fossa, articular tubercle andtympanic part of the left temporal bone, and the lateral aspect of the left maxillary air cells. There is overlying facial and left periorbital soft tissue hematoma and soft tissue gas. Tiny air bubble is seen adjacent to fractured superior left orbital wall in the left anterior cranial fossa. Frothy fluid with air-fluid level in bilateral maxillary sinuses likely represents hemorrhagic products. Extensive preseptal and leftperiorbital soft tissue swelling and hematoma is noted. The left mastoid air cellsare partially opacified likely with hemorrhagic products. The right orbitand orbital contents are unremarkable. The hard palate, mandible, and right temporomandibular joints appear normal. The right mastoid air cells are clear. TEMPORAL BONES: On the right side, the external auditory canal and auricle appearnormal. The mastoid air cells and the middle ear cavity including the middle ear ossicles appear normal. The bony labyrinth, internal auditory canal, and petrous apex appear normal. The carotid canal, jugular foramen, andcourse of the facial nerve appear normal. On the left side, there are fracture lines involving the petrous portion of the left temporal bone, lateral aspect of the mastoid processextending into the squamous part of the temporal bone, and the greater wing of the left sphenoid bone. The ossicles appear normal. There is no visible otic capsule involvement. Opacification of the left middle ear likely represents hemotympanum. The external auditory canal and auricle appear normal. The bony labyrinth, internal auditory canal appear normal. The carotid canal, jugular foramen, and course of the facial nerve appear normal. Left facial soft tissue swelling, hematoma, and gas are again seen. CERVICAL SPINE: The alignment is normal. Vertebral bodies are normal in height without evidence of acute fracture. The craniocervical junction is normal. The intervertebral disc spaces are normal in heights. No posterior disc herniation, blood in central canal or central canal stenosis is seen.The facets appear normal. The uncovertebral joints appear normal. No neural foraminal stenosis is seen. Patchy groundglass opacities are seen in the right upper lobe which may represent contusions in the setting of trauma or infection. Subcutaneous emphysema from facial fractures is seen extending into the neck. THORACIC SPINE: The alignment is normal. There is an age-indeterminate mild compression defect of the superior endplate of T3 vertebral body without evidence of retropulsion or evidence of instability. Schmorl's nodes, vacuumphenomena and degenerative disc disease are present at multiple levels. Noposterior disc abnormality, blood in central canal or central canal stenosis is seen. The facets appear normal. No neural foraminal stenosis is seen. There is subsegmental atelectasis in the dependent portions of the lung bases and patchy groundglass opacities in the right upper lung bilateral lower lobes which may represent contusion in the setting of traumaversus infection. LUMBAR SPINE: The alignment is normal. There are bilateral chronic L5 pars defects without causing spondylolisthesis. Vertebral bodies are normal in height without evidence of acute fracture. There is mild degenerative disc disease. There is vacuum phenomenon at L5-S1. No posterior disc abnormality, central canal stenosis or lateral recess stenosis is seen. The facets appear normal. No neural foraminal stenosis is seen. Moderate left hydronephrosis and proximal left hydroureter with transition to normal caliber left ureter at ureteropelvic junction is identified.There are large calcified urinary stones in the inferior pole calyces of the left kidney. An obstructing stone is not identified and ureteropelvic junction. IMPRESSION: 1. Acute left frontotemporal subarachnoid hemorrhage with no significant mass effect or midline shift. 2. Extensive left facial/temporal fractures and soft tissue swelling as described above. 3. No evidence of acute fracture in the cervical, thoracic, or lumbar spine. 4. Left renal hydronephrosis apparently due to ureteropelvic junction stenosis. There are large urinary stones in the inferior pole calyces of left kidney. Please see concurrent CT chest abdomen pelvis report for further information. Preliminary results discussed with Dr. Galdamez by Dr. English at7:51 PM 12/05/2019. Report dictated by Cedric Churchill MD (radiology physician). I, Dr. BRENDA COPPOLA have personally reviewed and interpreted this examination/study. This report was electronically signed by BRENDA COPPOLA on 12/06/201911:26 AM . Jaclyn Galdamez MD CT ORDERABLES * CT CERVICAL SPINE WO CONTRAST - C-Spine Trauma, Spine fracture (12/05/2019 7:26 PM CDT) Anatomical Region Laterality Modality Spine Computed Tomogra phy 12/06/2019 7:23 AM CDT Addenda Addendum by Brenda Coppola MD on 12/06/2019 12:18 PM CDT ORIGINAL REPORT EXAMINATION: 1. COMPUTED TOMOGRAPHY (CT) OF THE HEAD WITHOUT CONTRAST 2. CT OF THE MAXILLOFACIAL BONES WITHOUT CONTRAST 3. CT OF THE TEMPORAL BONES WITHOUT CONTRAST 4. CT OF THE CERVICAL SPINE WITHOUT CONTRAST 5. CT OF THE THORACIC SPINE WITHOUT CONTRAST 6. CT OF THE LUMBAR SPINE WITHOUT CONTRAST HISTORY: Trauma TECHNIQUE: CT of the head, cervical spine and temporal bones as well as maxillofacial bones, orbits, and paranasal sinuses was performed without contrast according to standard protocol. Reformatted axial, sagittal, and coronal images of the thoracic and lumbar spine were obtained by the technologist from a concurrently performed body CT and sent to the workstation for review. COMPARISON: No prior study is available for comparison at the time of this dictation. FINDINGS: HEAD: Moderate volume subarachnoid hemorrhage is seen in the left frontotemporal sulci and the left sylvian fissure extending to left ambient cistern. There is associated extensive left facial and scalp soft tissue swelling and hematoma as well as gas with underlying facial bone fractures. The ventricles are of normal size, shape, and morphology. The basal cisterns are patent. No mass effect or midline shift is seen. The novoa-white matter differentiation is normal. Periventricular white matter hypoattenuation is minimal, suggestive of senescent changes. Facial fractures and left frontal sinus fractures are described in the maxillofacial section. MAXILLOFACIAL: Extensive facial bone fractures including fractures of the anterior and posterior blue of the left frontal sinus; superior, lateral, medial and inferior blue of the left orbit; anterior and lateral blue of the left maxillary sinus which are comminuted, zygomatic arch, left temporomandibular joint/mandibular fossa, articular tubercle and tympanic part of the left temporal bone, and the lateral aspect of the left maxillary air cells. There is overlying facial and left periorbital soft tissue hematoma and soft tissue gas. Tiny air bubble is seen adjacent to fractured superior left orbital wall in the left anterior cranial fossa. Frothy fluid with air-fluid level in bilateral maxillary sinuses likely represents hemorrhagic products. Extensive preseptal and left periorbital soft tissue swelling and hematoma is noted. The left mastoid air cells are partially opacified likely with hemorrhagic products. The right orbit and orbital contents are unremarkable. The hard palate, mandible, and right temporomandibular joints appear normal. The right mastoid air cells are clear. TEMPORAL BONES: On the right side, the external auditory canal and auricle appear normal. The mastoid air cells and the middle ear cavity including the middle ear ossicles appear normal. The bony labyrinth, internal auditory canal, and petrous apex appear normal. The carotid canal, jugular foramen, and course of the facial nerve appear normal. On the left side, there are fracture lines involving the petrous portion of the left temporal bone, lateral aspect of the mastoid process extending into the squamous part of the temporal bone, and the greater wing of the left sphenoid bone. The ossicles appear normal. There is no visible otic capsule involvement. Opacification of the left middle ear likely represents hemotympanum. The external auditory canal and auricle appear normal. The bony labyrinth, internal auditory canal appear normal. The carotid canal, jugular foramen, and course of the facial nerve appear normal. Left facial soft tissue swelling, hematoma, and gas are again seen. CERVICAL SPINE: The alignment is normal. Vertebral bodies are normal in height without evidence of acute fracture. The craniocervical junction is normal. The intervertebral disc spaces are normal in heights. No posterior disc herniation, blood in central canal or central canal stenosis is seen. The facets appear normal. The uncovertebral joints appear normal. No neural foraminal stenosis is seen. Patchy groundglass opacities are seen in the right upper lobe which may represent contusions in the setting of trauma or infection. Subcutaneous emphysema from facial fractures is seen extending into the neck. THORACIC SPINE: The alignment is normal. There is an age-indeterminate mild compression defect of the superior endplate of T3 vertebral body without evidence of retropulsion or evidence of instability. Schmorl's nodes, vacuum phenomena and degenerative disc disease are present at multiple levels. No posterior disc abnormality, blood in central canal or central canal stenosis is seen. The facets appear normal. No neural foraminal stenosis is seen. There is subsegmental atelectasis in the dependent portions of the lung bases and patchy groundglass opacities in the right upper lung bilateral lower lobes which may represent contusion in the setting of trauma versus infection. LUMBAR SPINE: The alignment is normal. There are bilateral chronic L5 pars defects without causing spondylolisthesis. Vertebral bodies are normal in height without evidence of acute fracture. There is mild degenerative disc disease. There is vacuum phenomenon at L5-S1. No posterior disc abnormality, central canal stenosis or lateral recess stenosis is seen. The facets appear normal. No neural foraminal stenosis is seen. Moderate left hydronephrosis and proximal left hydroureter with transition to normal caliber left ureter at ureteropelvic junction is identified. There are large calcified urinary stones in the inferior pole calyces of the left kidney. An obstructing stone is not identified and ureteropelvic junction. IMPRESSION: 1. Acute left frontotemporal subarachnoid hemorrhage with no significant mass effect or midline shift. 2. Extensive left facial/temporal fractures and soft tissue swelling as described above. 3. No evidence of acute fracture in the cervical, thoracic, or lumbar spine. 4. Left renal hydronephrosis apparently due to ureteropelvic junction stenosis. There are large urinary stones in the inferior pole calyces of left kidney. Please see concurrent CT chest abdomen pelvis report for further information. Preliminary results discussed with Dr. Galdamez by Dr. English at 7:51 PM 12/05/2019. Report dictated by Cedric Churchill MD (radiology physician). IDr. BRENDA have personally reviewed and interpreted this examination/study. This report was electronically signed by BRENDA COPPOLA on 12/06/2019 11:26 AM . ADDENDUM #1 The reported compression defect of superior endplate of T3 in the body of the report is a shallow Schmorl's node. This was discussed with Dr. Daley from trauma. This report was electronically signed by BRENDA COPPOLA on 12/06/2019 12:15 PM . Impressions 12/06/2019 11:26 AM CDT IMPRESSION: 1. Acute left frontotemporal subarachnoid hemorrhage with no significant mass effect or midline shift. 2. Extensive left facial/temporal fractures and soft tissue swelling as described above. 3. No evidence of acute fracture in the cervical, thoracic, or lumbar spine. 4. Left renal hydronephrosis apparently due to ureteropelvic junction stenosis. There are large urinary stones in the inferior pole calyces of left kidney. Please see concurrent CT chest abdomen pelvis report for further information. Preliminary results discussed with Dr. Galdamez by Dr. English at 7:51 PM 12/05/2019. Report dictated by Cedric Churchill MD (radiology physician). Dr. BREDNA Horton have personally reviewed and interpreted this examination/study. This report was electronically signed by BRENDA COPPOLA on 12/06/2019 11:26 AM . Narrative 12/06/2019 11:26 AM CDT EXAMINATION: 1. COMPUTED TOMOGRAPHY (CT) OF THE HEAD WITHOUT CONTRAST 2. CT OF THE MAXILLOFACIAL BONES WITHOUT CONTRAST 3. CT OF THE TEMPORAL BONES WITHOUT CONTRAST 4. CT OF THE CERVICAL SPINE WITHOUT CONTRAST 5. CT OF THE THORACIC SPINE WITHOUT CONTRAST 6. CT OF THE LUMBAR SPINE WITHOUT CONTRAST HISTORY: Trauma TECHNIQUE: CT of the head, cervical spine and temporal bones as well as maxillofacial bones, orbits, and paranasal sinuses was performed without contrast according to standard protocol. Reformatted axial, sagittal, and coronal images of the thoracic and lumbar spine were obtained by the technologist from a concurrently performed body CT and sent to the workstation for review. COMPARISON: No prior study is available for comparison at the time of this dictation. FINDINGS: HEAD: Moderate volume subarachnoid hemorrhage is seen in the left frontotemporal sulci and the left sylvian fissure extending to left ambient cistern. There is associated extensive left facial and scalp soft tissue swelling and hematoma as well as gas with underlying facial bone fractures. The ventricles are of normal size, shape, and morphology. The basal cisterns are patent. No mass effect or midline shift is seen. The novoa-white matter differentiation is normal. Periventricular white matter hypoattenuation is minimal, suggestive of senescent changes. Facial fractures and left frontal sinus fractures are described in the maxillofacial section. MAXILLOFACIAL: Extensive facial bone fractures including fractures of the anterior and posterior blue of the left frontal sinus; superior, lateral, medial and inferior blue of the left orbit; anterior and lateral blue of the left maxillary sinus which are comminuted, zygomatic arch, left temporomandibular joint/mandibular fossa, articular tubercle and tympanic part of the left temporal bone, and the lateral aspect of the left maxillary air cells. There is overlying facial and left periorbital soft tissue hematoma and soft tissue gas. Tiny air bubble is seen adjacent to fractured superior left orbital wall in the left anterior cranial fossa. Frothy fluid with air-fluid level in bilateral maxillary sinuses likely represents hemorrhagic products. Extensive preseptal and left periorbital soft tissue swelling and hematoma is noted. The left mastoid air cells are partially opacified likely with hemorrhagic products. The right orbit and orbital contents are unremarkable. The hard palate, mandible, and right temporomandibular joints appear normal. The right mastoid air cells are clear. TEMPORAL BONES: On the right side, the external auditory canal and auricle appear normal. The mastoid air cells and the middle ear cavity including the middle ear ossicles appear normal. The bony labyrinth, internal auditory canal, and petrous apex appear normal. The carotid canal, jugular foramen, and course of the facial nerve appear normal. On the left side, there are fracture lines involving the petrous portion of the left temporal bone, lateral aspect of the mastoid process extending into the squamous part of the temporal bone, and the greater wing of the left sphenoid bone. The ossicles appear normal. There is no visible otic capsule involvement. Opacification of the left middle ear likely represents hemotympanum. The external auditory canal and auricle appear normal. The bony labyrinth, internal auditory canal appear normal. The carotid canal, jugular foramen, and course of the facial nerve appear normal. Left facial soft tissue swelling, hematoma, and gas are again seen. CERVICAL SPINE: The alignment is normal. Vertebral bodies are normal in height without evidence of acute fracture. The craniocervical junction is normal. The intervertebral disc spaces are normal in heights. No posterior disc herniation, blood in central canal or central canal stenosis is seen. The facets appear normal. The uncovertebral joints appear normal. No neural foraminal stenosis is seen. Patchy groundglass opacities are seen in the right upper lobe which may represent contusions in the setting of trauma or infection. Subcutaneous emphysema from facial fractures is seen extending into the neck. THORACIC SPINE: The alignment is normal. There is an age-indeterminate mild compression defect of the superior endplate of T3 vertebral body without evidence of retropulsion or evidence of instability. Schmorl's nodes, vacuum phenomena and degenerative disc disease are present at multiple levels. No posterior disc abnormality, blood in central canal or central canal stenosis is seen. The facets appear normal. No neural foraminal stenosis is seen. There is subsegmental atelectasis in the dependent portions of the lung bases and patchy groundglass opacities in the right upper lung bilateral lower lobes which may represent contusion in the setting of trauma versus infection. LUMBAR SPINE: The alignment is normal. There are bilateral chronic L5 pars defects without causing spondylolisthesis. Vertebral bodies are normal in height without evidence of acute fracture. There is mild degenerative disc disease. There is vacuum phenomenon at L5-S1. No posterior disc abnormality, central canal stenosis or lateral recess stenosis is seen. The facets appear normal. No neural foraminal stenosis is seen. Moderate left hydronephrosis and proximal left hydroureter with transition to normal caliber left ureter at ureteropelvic junction is identified. There are large calcified urinary stones in the inferior pole calyces of the left kidney. An obstructing stone is not identified and ureteropelvic junction. Procedure Note Brenda Coppola MD - 12/06/2019 EXAMINATION: 1. COMPUTED TOMOGRAPHY (CT) OF THE HEAD WITHOUT CONTRAST 2. CT OF THE MAXILLOFACIAL BONES WITHOUT CONTRAST 3. CT OF THE TEMPORAL BONES WITHOUT CONTRAST 4. CT OF THE CERVICAL SPINE WITHOUT CONTRAST 5. CT OF THE THORACIC SPINE WITHOUT CONTRAST 6. CT OF THE LUMBAR SPINE WITHOUT CONTRAST HISTORY: Trauma TECHNIQUE: CT of the head, cervical spine and temporal bones as well as maxillofacial bones, orbits, and paranasal sinuses was performed without contrast according to standard protocol. Reformatted axial, sagittal,and coronal images of the thoracic and lumbar spine were obtained by the technologist from a concurrently performed body CT and sent to the workstation for review. COMPARISON: No prior study is available for comparison at the time ofthis dictation. FINDINGS: HEAD: Moderate volume subarachnoid hemorrhage is seen in the leftfrontotemporal sulci and the left sylvian fissure extending to left ambient cistern. There is associated extensive left facial and scalp soft tissue swelling and hematoma as well as gas with underlying facial bone fractures. The ventricles are of normal size, shape, and morphology. The basal cisterns are patent. No mass effect or midline shift is seen. The novoa-white matter differentiation is normal. Periventricular whitematter hypoattenuation is minimal, suggestive of senescent changes. Facial fractures and left frontal sinus fractures are described in the maxillofacial section. MAXILLOFACIAL: Extensive facial bone fractures including fractures of the anterior and posterior blue of the left frontal sinus; superior, lateral, medial and inferior blue of the left orbit; anterior and lateral blue of the left maxillary sinus which are comminuted, zygomatic arch, left temporomandibular joint/mandibular fossa, articular tubercle andtympanic part of the left temporal bone, and the lateral aspect of the left maxillary air cells. There is overlying facial and left periorbital soft tissue hematoma and soft tissue gas. Tiny air bubble is seen adjacent to fractured superior left orbital wall in the left anterior cranial fossa. Frothy fluid with air-fluid level in bilateral maxillary sinuses likely represents hemorrhagic products. Extensive preseptal and leftperiorbital soft tissue swelling and hematoma is noted. The left mastoid air cellsare partially opacified likely with hemorrhagic products. The right orbitand orbital contents are unremarkable. The hard palate, mandible, and right temporomandibular joints appear normal. The right mastoid air cells are clear. TEMPORAL BONES: On the right side, the external auditory canal and auricle appearnormal. The mastoid air cells and the middle ear cavity including the middle ear ossicles appear normal. The bony labyrinth, internal auditory canal, and petrous apex appear normal. The carotid canal, jugular foramen, andcourse of the facial nerve appear normal. On the left side, there are fracture lines involving the petrous portion of the left temporal bone, lateral aspect of the mastoid processextending into the squamous part of the temporal bone, and the greater wing of the left sphenoid bone. The ossicles appear normal. There is no visible otic capsule involvement. Opacification of the left middle ear likely represents hemotympanum. The external auditory canal and auricle appear normal. The bony labyrinth, internal auditory canal appear normal. The carotid canal, jugular foramen, and course of the facial nerve appear normal. Left facial soft tissue swelling, hematoma, and gas are again seen. CERVICAL SPINE: The alignment is normal. Vertebral bodies are normal in height without evidence of acute fracture. The craniocervical junction is normal. The intervertebral disc spaces are normal in heights. No posterior disc herniation, blood in central canal or central canal stenosis is seen.The facets appear normal. The uncovertebral joints appear normal. No neural foraminal stenosis is seen. Patchy groundglass opacities are seen in the right upper lobe which may represent contusions in the setting of trauma or infection. Subcutaneous emphysema from facial fractures is seen extending into the neck. THORACIC SPINE: The alignment is normal. There is an age-indeterminate mild compression defect of the superior endplate of T3 vertebral body without evidence of retropulsion or evidence of instability. Schmorl's nodes, vacuumphenomena and degenerative disc disease are present at multiple levels. Noposterior disc abnormality, blood in central canal or central canal stenosis is seen. The facets appear normal. No neural foraminal stenosis is seen. There is subsegmental atelectasis in the dependent portions of the lung bases and patchy groundglass opacities in the right upper lung bilateral lower lobes which may represent contusion in the setting of traumaversus infection. LUMBAR SPINE: The alignment is normal. There are bilateral chronic L5 pars defects without causing spondylolisthesis. Vertebral bodies are normal in height without evidence of acute fracture. There is mild degenerative disc disease. There is vacuum phenomenon at L5-S1. No posterior disc abnormality, central canal stenosis or lateral recess stenosis is seen. The facets appear normal. No neural foraminal stenosis is seen. Moderate left hydronephrosis and proximal left hydroureter with transition to normal caliber left ureter at ureteropelvic junction is identified.There are large calcified urinary stones in the inferior pole calyces of the left kidney. An obstructing stone is not identified and ureteropelvic junction. IMPRESSION: 1. Acute left frontotemporal subarachnoid hemorrhage with no significant mass effect or midline shift. 2. Extensive left facial/temporal fractures and soft tissue swelling as described above. 3. No evidence of acute fracture in the cervical, thoracic, or lumbar spine. 4. Left renal hydronephrosis apparently due to ureteropelvic junction stenosis. There are large urinary stones in the inferior pole calyces of left kidney. Please see concurrent CT chest abdomen pelvis report for further information. Preliminary results discussed with Dr. Galdamez by Dr. English at7:51 PM 12/05/2019. Report dictated by Cedric Churchill MD (radiology physician). I, Dr. BRENDA COPPOLA have personally reviewed and interpreted this examination/study. This report was electronically signed by BRENDA COPPOLA on 12/06/201911:26 AM . Jaclyn Galdamez MD CT ORDERABLES * CT FACIAL BONES WO CONTRAST - Facial trauma, fx suspected, blunt (12/05/2019 7:26 PM CDT) Anatomical Region Laterality Modality Head Computed Tomogra phy 12/06/2019 7:23 AM CDT Addenda Addendum by Brenda Coppola MD on 12/06/2019 12:18 PM CDT ORIGINAL REPORT EXAMINATION: 1. COMPUTED TOMOGRAPHY (CT) OF THE HEAD WITHOUT CONTRAST 2. CT OF THE MAXILLOFACIAL BONES WITHOUT CONTRAST 3. CT OF THE TEMPORAL BONES WITHOUT CONTRAST 4. CT OF THE CERVICAL SPINE WITHOUT CONTRAST 5. CT OF THE THORACIC SPINE WITHOUT CONTRAST 6. CT OF THE LUMBAR SPINE WITHOUT CONTRAST HISTORY: Trauma TECHNIQUE: CT of the head, cervical spine and temporal bones as well as maxillofacial bones, orbits, and paranasal sinuses was performed without contrast according to standard protocol. Reformatted axial, sagittal, and coronal images of the thoracic and lumbar spine were obtained by the technologist from a concurrently performed body CT and sent to the workstation for review. COMPARISON: No prior study is available for comparison at the time of this dictation. FINDINGS: HEAD: Moderate volume subarachnoid hemorrhage is seen in the left frontotemporal sulci and the left sylvian fissure extending to left ambient cistern. There is associated extensive left facial and scalp soft tissue swelling and hematoma as well as gas with underlying facial bone fractures. The ventricles are of normal size, shape, and morphology. The basal cisterns are patent. No mass effect or midline shift is seen. The novoa-white matter differentiation is normal. Periventricular white matter hypoattenuation is minimal, suggestive of senescent changes. Facial fractures and left frontal sinus fractures are described in the maxillofacial section. MAXILLOFACIAL: Extensive facial bone fractures including fractures of the anterior and posterior blue of the left frontal sinus; superior, lateral, medial and inferior blue of the left orbit; anterior and lateral blue of the left maxillary sinus which are comminuted, zygomatic arch, left temporomandibular joint/mandibular fossa, articular tubercle and tympanic part of the left temporal bone, and the lateral aspect of the left maxillary air cells. There is overlying facial and left periorbital soft tissue hematoma and soft tissue gas. Tiny air bubble is seen adjacent to fractured superior left orbital wall in the left anterior cranial fossa. Frothy fluid with air-fluid level in bilateral maxillary sinuses likely represents hemorrhagic products. Extensive preseptal and left periorbital soft tissue swelling and hematoma is noted. The left mastoid air cells are partially opacified likely with hemorrhagic products. The right orbit and orbital contents are unremarkable. The hard palate, mandible, and right temporomandibular joints appear normal. The right mastoid air cells are clear. TEMPORAL BONES: On the right side, the external auditory canal and auricle appear normal. The mastoid air cells and the middle ear cavity including the middle ear ossicles appear normal. The bony labyrinth, internal auditory canal, and petrous apex appear normal. The carotid canal, jugular foramen, and course of the facial nerve appear normal. On the left side, there are fracture lines involving the petrous portion of the left temporal bone, lateral aspect of the mastoid process extending into the squamous part of the temporal bone, and the greater wing of the left sphenoid bone. The ossicles appear normal. There is no visible otic capsule involvement. Opacification of the left middle ear likely represents hemotympanum. The external auditory canal and auricle appear normal. The bony labyrinth, internal auditory canal appear normal. The carotid canal, jugular foramen, and course of the facial nerve appear normal. Left facial soft tissue swelling, hematoma, and gas are again seen. CERVICAL SPINE: The alignment is normal. Vertebral bodies are normal in height without evidence of acute fracture. The craniocervical junction is normal. The intervertebral disc spaces are normal in heights. No posterior disc herniation, blood in central canal or central canal stenosis is seen. The facets appear normal. The uncovertebral joints appear normal. No neural foraminal stenosis is seen. Patchy groundglass opacities are seen in the right upper lobe which may represent contusions in the setting of trauma or infection. Subcutaneous emphysema from facial fractures is seen extending into the neck. THORACIC SPINE: The alignment is normal. There is an age-indeterminate mild compression defect of the superior endplate of T3 vertebral body without evidence of retropulsion or evidence of instability. Schmorl's nodes, vacuum phenomena and degenerative disc disease are present at multiple levels. No posterior disc abnormality, blood in central canal or central canal stenosis is seen. The facets appear normal. No neural foraminal stenosis is seen. There is subsegmental atelectasis in the dependent portions of the lung bases and patchy groundglass opacities in the right upper lung bilateral lower lobes which may represent contusion in the setting of trauma versus infection. LUMBAR SPINE: The alignment is normal. There are bilateral chronic L5 pars defects without causing spondylolisthesis. Vertebral bodies are normal in height without evidence of acute fracture. There is mild degenerative disc disease. There is vacuum phenomenon at L5-S1. No posterior disc abnormality, central canal stenosis or lateral recess stenosis is seen. The facets appear normal. No neural foraminal stenosis is seen. Moderate left hydronephrosis and proximal left hydroureter with transition to normal caliber left ureter at ureteropelvic junction is identified. There are large calcified urinary stones in the inferior pole calyces of the left kidney. An obstructing stone is not identified and ureteropelvic junction. IMPRESSION: 1. Acute left frontotemporal subarachnoid hemorrhage with no significant mass effect or midline shift. 2. Extensive left facial/temporal fractures and soft tissue swelling as described above. 3. No evidence of acute fracture in the cervical, thoracic, or lumbar spine. 4. Left renal hydronephrosis apparently due to ureteropelvic junction stenosis. There are large urinary stones in the inferior pole calyces of left kidney. Please see concurrent CT chest abdomen pelvis report for further information. Preliminary results discussed with Dr. Galdamez by Dr. English at 7:51 PM 12/05/2019. Report dictated by Cedric Churchill MD (radiology physician). I, Dr. BRENDA COPPOLA have personally reviewed and interpreted this examination/study. This report was electronically signed by BRENDA COPPOLA on 12/06/2019 11:26 AM . ADDENDUM #1 The reported compression defect of superior endplate of T3 in the body of the report is a shallow Schmorl's node. This was discussed with Dr. Daley from trauma. This report was electronically signed by BRENDA COPPOLA on 12/06/2019 12:15 PM . Impressions 12/06/2019 11:26 AM CDT IMPRESSION: 1. Acute left frontotemporal subarachnoid hemorrhage with no significant mass effect or midline shift. 2. Extensive left facial/temporal fractures and soft tissue swelling as described above. 3. No evidence of acute fracture in the cervical, thoracic, or lumbar spine. 4. Left renal hydronephrosis apparently due to ureteropelvic junction stenosis. There are large urinary stones in the inferior pole calyces of left kidney. Please see concurrent CT chest abdomen pelvis report for further information. Preliminary results discussed with Dr. Galdamez by Dr. English at 7:51 PM 12/05/2019. Report dictated by Cedric Churchill MD (radiology physician). IDr. BRENDA have personally reviewed and interpreted this examination/study. This report was electronically signed by BRENDA COPPOLA on 12/06/2019 11:26 AM . Narrative 12/06/2019 11:26 AM CDT EXAMINATION: 1. COMPUTED TOMOGRAPHY (CT) OF THE HEAD WITHOUT CONTRAST 2. CT OF THE MAXILLOFACIAL BONES WITHOUT CONTRAST 3. CT OF THE TEMPORAL BONES WITHOUT CONTRAST 4. CT OF THE CERVICAL SPINE WITHOUT CONTRAST 5. CT OF THE THORACIC SPINE WITHOUT CONTRAST 6. CT OF THE LUMBAR SPINE WITHOUT CONTRAST HISTORY: Trauma TECHNIQUE: CT of the head, cervical spine and temporal bones as well as maxillofacial bones, orbits, and paranasal sinuses was performed without contrast according to standard protocol. Reformatted axial, sagittal, and coronal images of the thoracic and lumbar spine were obtained by the technologist from a concurrently performed body CT and sent to the workstation for review. COMPARISON: No prior study is available for comparison at the time of this dictation. FINDINGS: HEAD: Moderate volume subarachnoid hemorrhage is seen in the left frontotemporal sulci and the left sylvian fissure extending to left ambient cistern. There is associated extensive left facial and scalp soft tissue swelling and hematoma as well as gas with underlying facial bone fractures. The ventricles are of normal size, shape, and morphology. The basal cisterns are patent. No mass effect or midline shift is seen. The novoa-white matter differentiation is normal. Periventricular white matter hypoattenuation is minimal, suggestive of senescent changes. Facial fractures and left frontal sinus fractures are described in the maxillofacial section. MAXILLOFACIAL: Extensive facial bone fractures including fractures of the anterior and posterior blue of the left frontal sinus; superior, lateral, medial and inferior blue of the left orbit; anterior and lateral blue of the left maxillary sinus which are comminuted, zygomatic arch, left temporomandibular joint/mandibular fossa, articular tubercle and tympanic part of the left temporal bone, and the lateral aspect of the left maxillary air cells. There is overlying facial and left periorbital soft tissue hematoma and soft tissue gas. Tiny air bubble is seen adjacent to fractured superior left orbital wall in the left anterior cranial fossa. Frothy fluid with air-fluid level in bilateral maxillary sinuses likely represents hemorrhagic products. Extensive preseptal and left periorbital soft tissue swelling and hematoma is noted. The left mastoid air cells are partially opacified likely with hemorrhagic products. The right orbit and orbital contents are unremarkable. The hard palate, mandible, and right temporomandibular joints appear normal. The right mastoid air cells are clear. TEMPORAL BONES: On the right side, the external auditory canal and auricle appear normal. The mastoid air cells and the middle ear cavity including the middle ear ossicles appear normal. The bony labyrinth, internal auditory canal, and petrous apex appear normal. The carotid canal, jugular foramen, and course of the facial nerve appear normal. On the left side, there are fracture lines involving the petrous portion of the left temporal bone, lateral aspect of the mastoid process extending into the squamous part of the temporal bone, and the greater wing of the left sphenoid bone. The ossicles appear normal. There is no visible otic capsule involvement. Opacification of the left middle ear likely represents hemotympanum. The external auditory canal and auricle appear normal. The bony labyrinth, internal auditory canal appear normal. The carotid canal, jugular foramen, and course of the facial nerve appear normal. Left facial soft tissue swelling, hematoma, and gas are again seen. CERVICAL SPINE: The alignment is normal. Vertebral bodies are normal in height without evidence of acute fracture. The craniocervical junction is normal. The intervertebral disc spaces are normal in heights. No posterior disc herniation, blood in central canal or central canal stenosis is seen. The facets appear normal. The uncovertebral joints appear normal. No neural foraminal stenosis is seen. Patchy groundglass opacities are seen in the right upper lobe which may represent contusions in the setting of trauma or infection. Subcutaneous emphysema from facial fractures is seen extending into the neck. THORACIC SPINE: The alignment is normal. There is an age-indeterminate mild compression defect of the superior endplate of T3 vertebral body without evidence of retropulsion or evidence of instability. Schmorl's nodes, vacuum phenomena and degenerative disc disease are present at multiple levels. No posterior disc abnormality, blood in central canal or central canal stenosis is seen. The facets appear normal. No neural foraminal stenosis is seen. There is subsegmental atelectasis in the dependent portions of the lung bases and patchy groundglass opacities in the right upper lung bilateral lower lobes which may represent contusion in the setting of trauma versus infection. LUMBAR SPINE: The alignment is normal. There are bilateral chronic L5 pars defects without causing spondylolisthesis. Vertebral bodies are normal in height without evidence of acute fracture. There is mild degenerative disc disease. There is vacuum phenomenon at L5-S1. No posterior disc abnormality, central canal stenosis or lateral recess stenosis is seen. The facets appear normal. No neural foraminal stenosis is seen. Moderate left hydronephrosis and proximal left hydroureter with transition to normal caliber left ureter at ureteropelvic junction is identified. There are large calcified urinary stones in the inferior pole calyces of the left kidney. An obstructing stone is not identified and ureteropelvic junction. Procedure Note Brenda Coppola MD - 12/06/2019 EXAMINATION: 1. COMPUTED TOMOGRAPHY (CT) OF THE HEAD WITHOUT CONTRAST 2. CT OF THE MAXILLOFACIAL BONES WITHOUT CONTRAST 3. CT OF THE TEMPORAL BONES WITHOUT CONTRAST 4. CT OF THE CERVICAL SPINE WITHOUT CONTRAST 5. CT OF THE THORACIC SPINE WITHOUT CONTRAST 6. CT OF THE LUMBAR SPINE WITHOUT CONTRAST HISTORY: Trauma TECHNIQUE: CT of the head, cervical spine and temporal bones as well as maxillofacial bones, orbits, and paranasal sinuses was performed without contrast according to standard protocol. Reformatted axial, sagittal,and coronal images of the thoracic and lumbar spine were obtained by the technologist from a concurrently performed body CT and sent to the workstation for review. COMPARISON: No prior study is available for comparison at the time ofthis dictation. FINDINGS: HEAD: Moderate volume subarachnoid hemorrhage is seen in the leftfrontotemporal sulci and the left sylvian fissure extending to left ambient cistern. There is associated extensive left facial and scalp soft tissue swelling and hematoma as well as gas with underlying facial bone fractures. The ventricles are of normal size, shape, and morphology. The basal cisterns are patent. No mass effect or midline shift is seen. The novoa-white matter differentiation is normal. Periventricular whitematter hypoattenuation is minimal, suggestive of senescent changes. Facial fractures and left frontal sinus fractures are described in the maxillofacial section. MAXILLOFACIAL: Extensive facial bone fractures including fractures of the anterior and posterior blue of the left frontal sinus; superior, lateral, medial and inferior blue of the left orbit; anterior and lateral blue of the left maxillary sinus which are comminuted, zygomatic arch, left temporomandibular joint/mandibular fossa, articular tubercle andtympanic part of the left temporal bone, and the lateral aspect of the left maxillary air cells. There is overlying facial and left periorbital soft tissue hematoma and soft tissue gas. Tiny air bubble is seen adjacent to fractured superior left orbital wall in the left anterior cranial fossa. Frothy fluid with air-fluid level in bilateral maxillary sinuses likely represents hemorrhagic products. Extensive preseptal and leftperiorbital soft tissue swelling and hematoma is noted. The left mastoid air cellsare partially opacified likely with hemorrhagic products. The right orbitand orbital contents are unremarkable. The hard palate, mandible, and right temporomandibular joints appear normal. The right mastoid air cells are clear. TEMPORAL BONES: On the right side, the external auditory canal and auricle appearnormal. The mastoid air cells and the middle ear cavity including the middle ear ossicles appear normal. The bony labyrinth, internal auditory canal, and petrous apex appear normal. The carotid canal, jugular foramen, andcourse of the facial nerve appear normal. On the left side, there are fracture lines involving the petrous portion of the left temporal bone, lateral aspect of the mastoid processextending into the squamous part of the temporal bone, and the greater wing of the left sphenoid bone. The ossicles appear normal. There is no visible otic capsule involvement. Opacification of the left middle ear likely represents hemotympanum. The external auditory canal and auricle appear normal. The bony labyrinth, internal auditory canal appear normal. The carotid canal, jugular foramen, and course of the facial nerve appear normal. Left facial soft tissue swelling, hematoma, and gas are again seen. CERVICAL SPINE: The alignment is normal. Vertebral bodies are normal in height without evidence of acute fracture. The craniocervical junction is normal. The intervertebral disc spaces are normal in heights. No posterior disc herniation, blood in central canal or central canal stenosis is seen.The facets appear normal. The uncovertebral joints appear normal. No neural foraminal stenosis is seen. Patchy groundglass opacities are seen in the right upper lobe which may represent contusions in the setting of trauma or infection. Subcutaneous emphysema from facial fractures is seen extending into the neck. THORACIC SPINE: The alignment is normal. There is an age-indeterminate mild compression defect of the superior endplate of T3 vertebral body without evidence of retropulsion or evidence of instability. Schmorl's nodes, vacuumphenomena and degenerative disc disease are present at multiple levels. Noposterior disc abnormality, blood in central canal or central canal stenosis is seen. The facets appear normal. No neural foraminal stenosis is seen. There is subsegmental atelectasis in the dependent portions of the lung bases and patchy groundglass opacities in the right upper lung bilateral lower lobes which may represent contusion in the setting of traumaversus infection. LUMBAR SPINE: The alignment is normal. There are bilateral chronic L5 pars defects without causing spondylolisthesis. Vertebral bodies are normal in height without evidence of acute fracture. There is mild degenerative disc disease. There is vacuum phenomenon at L5-S1. No posterior disc abnormality, central canal stenosis or lateral recess stenosis is seen. The facets appear normal. No neural foraminal stenosis is seen. Moderate left hydronephrosis and proximal left hydroureter with transition to normal caliber left ureter at ureteropelvic junction is identified.There are large calcified urinary stones in the inferior pole calyces of the left kidney. An obstructing stone is not identified and ureteropelvic junction. IMPRESSION: 1. Acute left frontotemporal subarachnoid hemorrhage with no significant mass effect or midline shift. 2. Extensive left facial/temporal fractures and soft tissue swelling as described above. 3. No evidence of acute fracture in the cervical, thoracic, or lumbar spine. 4. Left renal hydronephrosis apparently due to ureteropelvic junction stenosis. There are large urinary stones in the inferior pole calyces of left kidney. Please see concurrent CT chest abdomen pelvis report for further information. Preliminary results discussed with Dr. Galdamez by Dr. English at7:51 PM 12/05/2019. Report dictated by Cedric Churchill MD (radiology physician). I, Dr. BRENDA COPPOLA have personally reviewed and interpreted this examination/study. This report was electronically signed by BRENDA COPPOLA on 12/06/201911:26 AM . Jaclyn Galdamez MD CT ORDERABLES * Intubation (12/05/2019 7:14 PM CDT) Narrative Zara Kuhn MD - 12/05/2019 7:14 PM CDT Zara Kuhn MD 12/06/2019 8:14 AM Intubation Date/Time: 12/06/2019 8:05 AM Performed by: Zara Kuhn MD Authorized by: Brandon Ceballos MD Consent: Consent obtained: Emergent situation Pre-procedure details: Patient status: Altered mental status Paralytics: Succinylcholine Procedure details: Preoxygenation: Bag valve mask Intubation method: Oral Oral intubation technique: Video-assisted Tube size (mm): 7.5 Tube type: Cuffed Number of attempts: 1 Ventilation between attempts: no Cricoid pressure: no Tube visualized through cords: yes Placement assessment: Tube secured with: ETT hebert Breath sounds: Equal and absent over the epigastrium Placement verification: chest rise, CXR verification, direct visualization and ETCO2 detector CXR findings: ETT in proper place Post-procedure details: Patient tolerance of procedure: Tolerated well, no immediate complications Brandon Ceballos MD PROCEDURE/MINOR CURT GICAL ORDERABLES * XR PELVIS 1 OR 2VW (12/05/2019 6:59 PM CDT) Anatomical Region Laterality Modality Pelvis Radiographic Christiana ging 12/05/2019 7:02 PM CDT Impressions 12/06/2019 11:01 AM CDT IMPRESSION: No acute fracture or dislocation identified. Dictated by Mary Kate English MD (residential sales rep). Dr. LOIDA Horton M.D. have personally reviewed and interpreted this examination/study. This report was electronically signed by LOIDA COLIN M.D. on 12/06/2019 11:01 AM . Narrative 12/06/2019 11:01 AM CDT EXAMINATION: XR PELVIS 1 OR 2VW HISTORY: Trauma Fracture suspected COMPARISON: No prior study is available for comparison. FINDINGS: No acute fracture is identified. The bilateral hip joint spaces are preserved. The pubic symphysis is intact. The osseous architecture and density are normal. The sacroiliac joints are normal. Procedure Note Loida Colin MD - 12/06/2019 EXAMINATION: XR PELVIS 1 OR 2VW HISTORY: Trauma Fracture suspected COMPARISON: No prior study is available for comparison. FINDINGS: No acute fracture is identified. The bilateral hip joint spaces are preserved. The pubic symphysis is intact. The osseous architecture and density are normal. The sacroiliac joints are normal. IMPRESSION: No acute fracture or dislocation identified. Dictated by Mary Kate English MD (residential sales rep). Dr. LOIDA Horton M.D. have personally reviewed and interpreted this examination/study. This report was electronically signed by LOIDA COLIN M.D. on 12/06/2019 11:01 AM . Jaclyn Galdamez MD DIAGNOSTIC IMAGING O RDERABLES * (ABNORMAL) PTT [facility] (12/05/2019 6:51 PM CDT) [facility] APTT 21.9(L) 23.0 - 38.4 Seconds 12/05/2019 7:11 PM CDT [facility] Comment:Suggested therapeuti c range for full dose I.V. unfractionated heparin therapy for venous thromboembolism is 71 to 109 seconds. Blood BLOOD SPECIMEN / Unknown Venipuncture / Unknown 12/05/2019 6:51 PM CDT 12/05/2019 6:59 PM CDT Jaclyn Galdamez MD LAB - COAGULATION OR DERABLES Performing Organization Address City/[facility]/ZIP Co de Phone Number [address] [phone] * TYPE + SCREEN PANEL (12/05/2019 6:51 PM CDT) [facility] Antibody Screen NEG 0 7:56 PM CDT [facility] ABO Rh A NEG 12/05/2019 7:56 PM CDT [facility] Blood Bank BLOOD SPECIMEN / Unknown Venipuncture / Unknown 12/05/2019 6:51 PM CDT 12/05/2019 7:16 PM CDT Jaclyn Galdamez MD LAB - BLOOD BANK ORD ERABLES Performing Organization Address [facility] Co de Phone Number [facility] [address] [place] [address] * (ABNORMAL) ALCOHOL ETHYL BLOOD (12/05/2019 6:51 PM CDT) [facility] Ethanol (mg/dL) 30(H) None Detected mg/dL 12/05/2019 7:16 PM CDT [facility] Comment:Ethanol in the patie nt's blood will contribute to the osmolar gap. Ethanol's contribution to the osmolar gap can be estimated by dividing the concentration of ethanol in mg/dL by 4.6. Blood BLOOD SPECIMEN / Unknown Venipuncture / Unknown 12/05/2019 6:51 PM CDT 12/05/2019 6:59 PM CDT Jaclyn Galdamez MD LAB - CHEMISTRY [place] Torres Organization Address City/State/ZIP Co de Phone Number [facility] [address] [phone] Care Teams Correctional Medicine Physician Relationship Specialty Start Date End Date Paulette Oviedo DO PCP - General 01/18/20
--- OUTSIDE RECORDS SUMMARY | 2024-11-12 12:50 | XMS_ITS | Encounter Summary ---
Author Organization [facility] Address [address] [place] [address] Care Team Providers Care Potato Peeler Name Role Phone Paulette Oviedo Primary Care Provider Encounter Details Date Type Department Care Team (Late st Contact Info) Description 12/06/2019 Ophth Exam [facility] [address] [place] [address] Janeth Hernandez MD [address] [facility] [address] [place] [id number] Social History Tobacco Use Types Packs/Day Years Used Date Smoking Tobacco: Never Smokeless Tobacco: Never Alcohol Use Standard Drinks/Week Comments Never 0 [...] on file Sexual Orientation Not on file documented as of this encounter Functional Status Functional Status Response Date of [...] concentrating/remembering/making decisions? No-these answers per earlier 12/06/2019 documented as of this encounter Plan of Treatment Not on file documented as of this encounter Visit Diagnoses Not on filedocumented in this encounter Care Teams Potato Peeler Relationship Specialty Start Date End Date Paulette Oviedo DO PCP - General 01/18/20 documented as of this encounter
--- OUTSIDE RECORDS SUMMARY | 2024-11-12 12:50 | XMS_ITS | Clinical Summary ---
Author Organization [facility] Address [address] [place] [address] Care Team Providers Care Alcohol Rubber Name Role Phone Unavailable Primary Care Provider Unavailabl e Allergies Active Allergy Reactions Criticality Noted Date Comments Chlorhexidine Rash Medium 08/23/2016 Medications lisinopriL (PRINIVIL) 5 mg tablet Take 5 mg by mouth daily. 2 Active rosuvastatin (CRESTOR) 20 mg tablet Take 20 mg by mouth daily. Active allopurinoL (ZYLOPRIM) 100 mg tablet Take 100 mg by mouth daily. Active meloxicam (MOBIC) 15 mg tablet Take 15 mg by mouth daily. Active ergocalciferol, vitamin D2, (VITAMIN D ORAL) Take by mouth. Active ondansetron (ZOFRAN ODT) 4 mg Tablet, Rapid Dissolve Take 1 Tablet (4 mg) by mouth every 8 hours as needed for Nausea/Vomiti ng. Dissolve tablet on top of tongue, then swallow with saliva. 10 Tablet 10/27/2024 10:54 AM ACADEMIC ASSOCIATE 5 Active HYDROcodone-aceta minophen (NORCO) 5-325 mg tabletIndications :Post-operative pain Take 1 Tablet by mouth every 4 hours as needed for Pain, Moderate. Max Daily Amount: 6 Tablets 30 Tablet 10/27/2024 10:54 AM ACADEMIC ASSOCIATE 5 Active sennosides (Senokot) 8.6 mg tablet Take 1 Tablet (8.6 mg) by mouth daily. 5 Active aspirin (ECOTRIN EC) 325 mg Tablet, Delayed Release (E.C.) Take 1 Tablet (325 mg) by mouth daily. Start 11/01/24 30 Tablet 10/27/2024 10:54 AM ACADEMIC ASSOCIATE Active ketorolac tromethamine (TORADOL) 10 mg tablet Take 1 Tablet (10 mg) by mouth every 6 hours for 4 days. 16 Tablet 10/27/2024 10:54 AM ACADEMIC ASSOCIATE 5 11/05/19 Active Problems Problem Noted Date Diagnosed Date Primary hypertension 04/22/2024 Gout 04/22/2024 Encounters Date Type Department Care Team Description 11/01/[address], [address] [place] [phone] Liliane Hilario RN 10/31/[address], [address] [place] [phone] Antionette Cullen RN 10/27/2024 7:00 AM ACADEMIC ASSOCIATE - 10/27/2024 11:59 PM ACADEMIC ASSOCIATE Hospital Encounter [facility] [address] [place] [address] Discharge Disposition: Home or Self Care 10/27/2024 7:00 AM ACADEMIC ASSOCIATE - 10/27/2024 10:25 AM ACADEMIC ASSOCIATE Surgery [facility] [address] [place] [address] Sandra Stallings MD ANKLE TOTAL ARTHROPLASTY 10/27/2024 6:27 AM ACADEMIC ASSOCIATE Anesthesia Event [facility] [address] [place] [address] Davie Doyle MD Wang, Christopher M, MD 10/27/2024 6:04 AM ACADEMIC ASSOCIATE - 10/27/2024 11:59 PM ACADEMIC ASSOCIATE Hospital Encounter [facility] [address] [place] [address] Discharge Disposition: Home or Self Care 10/27/2024 5:56 AM ACADEMIC ASSOCIATE - 10/27/2024 12:58 PM ACADEMIC ASSOCIATE Hospital Encounter [facility] [address] [place] [address] Sandra Stallings MD Arthritis of left ankle Discharge Disposition: Home or Self Care 10/12/2024 9:45 AM ACADEMIC ASSOCIATE Office Visit [facility] at [facility] Medicine [address] [place] [phone] Sandra Stallings MD Arthritis of left ankle (Primary Dx); Acquired valgus deformity of ankle 10/06/2024 9:00 AM ACADEMIC ASSOCIATE - 10/06/2024 11:59 PM ACADEMIC ASSOCIATE Hospital Encounter [facility] [address] [place] [address] Sandra Stallings MD Discharge Disposition: Home or Self Care 09/21/2024 External Device Data STL ABSTRACTION Provider, Abstract 09/14/2024 9:53 AM ACADEMIC ASSOCIATE - 09/14/2024 11:59 PM ACADEMIC ASSOCIATE Hospital Encounter [facility] CT [facility] [address] [place] [address] Sandra Stallings MD Discharge Disposition: Home or Self Care from Last 3 Months Social History Tobacco Use Types Packs/Day Years Used Date Smoking Tobacco: Never Smokeless Tobacco: Never Tobacco Cessation:Counseling Given: Not Answered Feeling Safe Answer Date Recorded Are you in a relationship wi th someone who hurts you emotionally and/or physically? Patient unable to answer 10/27/2024 Food Insecurity Answer Date Recorded Social/Environmental Concerns No concerns Transportation Needs Answer Date Record ed Social/Environmental Concerns No concerns Housing Stability Answer Date Recorded Social/Environmental Concerns No concerns Utility Needs Answer Date Recorded Social/Environmental Concerns No concerns Sex and Gender Information Value Date Recorded Sex Assigned at Not on file Legal Sex Male 6:49 PM ACADEMIC ASSOCIATE Gender Identity Not on file Sexual Orientation Not on file Last Filed Vital Signs Vital Sign Reading Time Taken Comments Blood Pressure 116/70 10/27/2024 12:45 PM ACADEMIC ASSOCIATE Pulse 100 10/27/2024 12:45 PM ACADEMIC ASSOCIATE Temperature 37.3 C (99.2 F) 10/27/2024 10:26 AM ACADEMIC ASSOCIATE Respiratory Rate 21 10/27/2024 12:45 PM ACADEMIC ASSOCIATE Oxygen Saturation 95% 10/27/2024 12:45 PM ACADEMIC ASSOCIATE Inhaled Oxygen Concentration - - Weight 83 kg (183 lb) 10/27/2024 6:06 AM ACADEMIC ASSOCIATE Height 177.8 cm (5' 10 ) 10/27/2024 6:06 AM ACADEMIC ASSOCIATE Body Mass Index 26.26 10/27/2024 6:06 AM ACADEMIC ASSOCIATE Plan of Treatment Upcoming Encounters Date Type Department Care Team (Late st Contact Info) Description 11/18/2024 8:00 AM CDT Office Visit [facility] at [facility] Medicine [address] [place] [phone] Sandra Stallings MD [address] [facility] [address] [place] [phone] 12/14/2024 3:30 PM CDT Office Visit [facility] at [facility] Medicine [address] [place] [address] Sandra Stallings MD [address] [facility] [address] [place] [address] 01/20/2025 11:30 AM CDT Office Visit [facility] at [facility] Medicine [address] [place] [address] Sandra Stallings MD [address] [facility] [address] [place] [address] Health Maintenance Due Date Last Done Comments FIT-DNA Q 3 years 2004 FIT/FOBT Q 1 year 2004 Flex Sig/CT Colonography Q 5 years 2004 PNEUMOCOCCAL VACCINE 50+ YEA RS (1 of 1 - PCV) 2009 ZOSTER VACCINE (1 of 2) 2009 COLORECTAL SCREENING 11/16/2022 11/16/2012 Colorectal Cancer Screening 11/16/2022 INFLUENZA VACCINE (#1) 2024 07/13/2020, 2018 Pre-Diabetes and Diabetes Screening 10/06/202710/06 DTAP/TDAP/TD VACCINES (2 - Td or Tdap) 12/04/2029 RSV VACCINE (60+ or ) (1 - 1-dose 75+ series) 2034 Medical Devices Implanted Type Area Beauty Advisor Device Identifier Shelf Expiration Date Model / Serial / Lot Tray Tib Infinity Sz4 Ankle [id number] - [id number] Implanted:Qty: 1 on 10/27/2024 by Sandra Stallings MD at [facility] Ankle Left: Ankle [employer] 03/31/2032 [id number] / / [id number] Screw Asnis Pt 4.0x60mm [id number] - [id number] Implanted:Qty: 1 on 10/27/2024 by Sandra Stallings MD at [facility] Screw Left: Ankle [employer] 09/08/2221 [id number] / / [id number] Description:Dee componen ts, only! Requisition, [id number]. Infinity Talar Dome Sz 3 Implanted:Qty: 1 on 10/27/2024 by Sandra Stallings MD at [facility] Left: Ankle [employer] 08/22/2032 [id number] / / [id number] 3+ 11mm Cross Linked Poly Insert Implanted:Qty: 1 on 10/27/2024 by Sandra Stallings MD at [facility] Left: Ankle [employer] 04/25/2028 [id number] / / [id number] Description:REQ [id number] Explanted Type Area Beauty Advisor Device Identifier Shelf Expiration Date Model / Serial / Lot Wire K Inbone [id number] - [id number] Explanted:Qty: 2 on 10/27/2024 at [facility] Wire Left: Ankle [employer] [id number] / / Procedures Procedure Name Priority Date/Time Associated Diagnosis Comments XR FLUORO LESS THAN 1 HOUR Routine 10/27/2024 9:55 AM ACADEMIC ASSOCIATE IR INJECTION Routine 10/27/2024 7:26 AM ACADEMIC ASSOCIATE NH ARTHROPLASTY ANKLE W/IMPLANT 10/27/2024 7:00 AM ACADEMIC ASSOCIATE Arthritis of left ankle Acquired valgus deformity of left ankle NH ANESTHESIA BLOCK PB PLACEHOLDER CHARGE Routine 10/27/2024 6:51 AM ACADEMIC ASSOCIATE NH ANESTHESIA BLOCK PB PLACEHOLDER CHARGE Routine 10/27/2024 6:51 AM ACADEMIC ASSOCIATE POC GLUCOSE Routine 10/27/2024 6:15 AM ACADEMIC ASSOCIATE HEMOGLOBIN A1C Routine 10/06/2024 9:[address] ANKLE WO CONTRAST LEFT Routine 09/14/2024 10:51 AM ACADEMIC ASSOCIATE Chronic pain of left ankle Arthritis of left ankle Acquired valgus deformity of ankle from Last 3 Months Results * XR FLUORO LESS THAN 1 HOUR (10/27/2024 9:55 AM ACADEMIC ASSOCIATE) Anatomical Region Laterality Modality Computed Radiogr aphy 10/27/2024 7:12 AM ACADEMIC ASSOCIATE Impressions 10/27/2024 9:51 AM ACADEMIC ASSOCIATE IMPRESSION: Please see procedure note by the service performing the procedure for details. DICTATION LOCATION: Location [address] [place] [address] 10/27/2024 9:51 AM ACADEMIC ASSOCIATE PROCEDURE/EXAM(S): XR FLUORO LESS THAN 1 HOUR TIME/DATE: 10/27/2024 7:11 AM. CLINICAL INFORMATION & INDICATION: Male of 64 years age with history of Other - Please see comments, Comment: Left Ankle. Post-operative pain; Arthritis of left ankle; Acquired valgus deformity of ankle COMPARISON STUDIES: CT of the left ankle performed 09/14/2024. Fluoroscopy time: One minute 4 seconds. REFERENCE AIR KERMA DOSE: 1.36 mGy FINDINGS: Fluoroscopy was provided for the Orthopedic service and six fluoroscopic images were obtained for total left ankle arthroplasty (tibiotalar joint) with placement of percutaneous distal medial malleolar and. A radiologist was not present for this procedure. Procedure Note Urbano Yu MD - 10/27/2024 PROCEDURE/EXAM(S): XR FLUORO LESS THAN 1 HOUR TIME/DATE: 10/27/2024 7:11 AM. CLINICAL INFORMATION & INDICATION: Male of 64 years age with history of Other - Please see comments, Comment: Left Ankle. Post-operative pain; Arthritis of left ankle; Acquired valgus deformity of ankle COMPARISON STUDIES: CT of the left ankle performed 09/14/2024. Fluoroscopy time: One minute 4 seconds. REFERENCE AIR KERMA DOSE: 1.36 mGy FINDINGS: Fluoroscopy was provided for the Orthopedic service and six fluoroscopic images were obtained for total left ankle arthroplasty (tibiotalar joint) with placement of percutaneous distal medial malleolar and. A radiologist was not present for this procedure. IMPRESSION: Please see procedure note by the service performing the procedure for details. DICTATION LOCATION: Location [address] [place] [address] Sandra Stallings MD DIAGNOSTIC IMAGING ORD ERABLES Final Result * IR INJECTION (10/27/2024 7:26 AM ACADEMIC ASSOCIATE) Narrative 10/27/2024 7:26 AM ACADEMIC ASSOCIATE Order information only. Exam was auto-finalized. Davie Doyle MD IR ORDERABLES Final Resul t * NH ANESTHESIA BLOCK PB PLACEHOLDER CHARGE (10/27/2024 6:51 AM ACADEMIC ASSOCIATE) Narrative Davie Doyle MD - 10/27/2024 6:51 AM ACADEMIC ASSOCIATE Davie Doyle MD 10/27/2024 6:51 AM Patient location during procedure: Pre-op Reason for block: at surgeon's request and post-op pain management Staffing Performed: Anesthesiologist (/) Authorized by: Davie Doyle MD Performed by: Davie Doyle MD Preanesthetic Checklist Completed: patient identified, IV checked, site marked, risks and benefits discussed, surgical consent, monitors and equipment checked, pre-op evaluation and timeout performed Hand hygiene performed prior to procedure Patient was prepped and draped in usual sterile fashion Patient position: Supine Prep: alcohol swabs Patient monitoring: Continuous pulse oximetry and EKG Block Region: Lower Extremity Block Block Type: Sciatic-Popliteal Laterality: Left Injection technique: Single-shot [place] Identification: ultrasound guided Skin Infiltration: Lidocaine 2% Local injected: Ropivacaine 0.5% Needle Needle type: Short-bevel Needle gauge: 22 G Needle length: 8 cm Needle localization: Ultrasound Guidance Nerve Stimulator or Paresthesia Response Motor response or paresthesia obtained mA ms Depth (cm) Sedation Given: Patient Response: Awake and Responsive to verbal stimuli Assessment Paresthesia pain: None Heart rate change: no Slow fractionated injection: yes Narrative Events: easy and well tolerated and no block events Outcome: Complete Davie Doyle MD PROCEDURE/MINOR SURGICAL OR DERABLES Edited Result - Final * NH ANESTHESIA BLOCK PB PLACEHOLDER CHARGE (10/27/2024 6:51 AM ACADEMIC ASSOCIATE) Narrative Davie Doyle MD - 10/27/2024 6:51 AM ACADEMIC ASSOCIATE Davie Doyle MD 10/27/2024 6:51 AM Patient location during procedure: Pre-op Reason for block: at surgeon's request and post-op pain management Staffing Performed: Anesthesiologist (/) Authorized by: Davie Doyle MD Performed by: Davie Doyle MD Preanesthetic Checklist Completed: patient identified, IV checked, site marked, risks and benefits discussed, surgical consent, monitors and equipment checked, pre-op evaluation and timeout performed Hand hygiene performed prior to procedure Patient was prepped and draped in usual sterile fashion Patient position: Supine Prep: alcohol swabs Patient monitoring: Continuous pulse oximetry and EKG Block Region: Lower Extremity Block Block Type: Saphenous Laterality: Left Injection technique: Single-shot [place] Identification: ultrasound guided Skin Infiltration: Lidocaine 2% Local injected: Bupivacaine 0.25% Needle Needle type: Short-bevel Needle gauge: 22 G Needle length: 8 cm Needle localization: Ultrasound Guidance Nerve Stimulator or Paresthesia Response Motor response or paresthesia obtained mA ms Depth (cm) Sedation Given: Patient Response: Awake and Responsive to verbal stimuli Assessment Paresthesia pain: None Heart rate change: no Slow fractionated injection: yes Narrative Events: easy and well tolerated and no block events Outcome: Complete Davie Doyle MD PROCEDURE/MINOR SURGICAL OR DERABLES Edited Result - Final * (ABNORMAL) POC GLUCOSE (10/27/2024 6:15 AM ACADEMIC ASSOCIATE) GLUCOSE POC 119(H) 74 - 99 mg/dL 10/27/2024 6:15 AM ACADEMIC ASSOCIATE [facility] SPECIMEN SOURCE, GLUCOSE POC Whole Blood 10/27/2024 6:15 AM ACADEMIC ASSOCIATE [facility] Blood, whole 10/27/2024 6:15 AM ACADEMIC ASSOCIATE 10/27/2024 6:18 AM ACADEMIC ASSOCIATE Sandra Stallings MD POINT OF CARE TESTING Final Result [facility] CLIA# [id number] [address] [place] [address] * HEMOGLOBIN A1C (10/06/2024 9:47 AM ACADEMIC ASSOCIATE) HEMOGLOBIN A1C 5.3 <5.7 % 10/06/2024 10:55 AM [facility] EST. AVG GLUCOSE, A1C 105 mg/dL 10/06/2024 10:55 AM [facility] Blood Venipuncture / Unknown 10/06/2024 9:47 AM ACADEMIC ASSOCIATE 10/06/2024 10:34 AM ACADEMIC ASSOCIATE Narrative [facility] - 10/06/2024 10:55 AM ACADEMIC ASSOCIATE HGB A1C INTERPRETATION NORMAL: <5.7% PRE-DIABETES: 5.7 - 6.4% DIABETES: 6.5% OR GREATER Nilam DIALLO CHEMISTRY ORDERABLES Final Re sult [facility] [employer] [facility] CLIA# [id number] [address] [place] [address] * CT ANKLE WO CONTRAST LEFT (09/14/2024 10:51 AM ACADEMIC ASSOCIATE) Anatomical Region Laterality Modality Ankle / Foot Computed Tomogra phy 09/14/2024 10:1 7 AM ACADEMIC ASSOCIATE Impressions 09/14/2024 1:57 PM ACADEMIC ASSOCIATE IMPRESSION: 1. 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 2. Multiple ossifications posterior to the ankle may represent loose bodies in the joint or within the FHL tendon sheath. 3. Severe FHL tenosynovitis. 4. Peroneus longus tendinosis and tenosynovitis. 5. Possible split tear of the peroneus brevis tendon. 6. Left total knee arthroplasty with nonspecific joint effusion. DICTATION LOCATION: Location Angelique Zacarias Narrative 09/14/2024 1:[address] ANKLE WO CONTRAST LEFT DATE: 09/14/2024 10:51 AM HISTORY: Bone mass or bone pain, ankle, aggressive features on xray. 64-year-old male with ankle pain TECHNIQUE: 0.625 mm axial images of the left ankle with 2-D sagittal and coronal reformatted images without intravenous contrast. Exam performed with adjustment of mA according to the patient size and/or the use of Iterative Reconstruction Technique. Zubican Protocol COMPARISON: X-ray 04/22/2024 FINDINGS: BONES: Mineralization is within normal limits. Plantar and posterior calcaneal spurs. Scattered bone islands. No acute fracture. Moderate-sized os trigonum with degenerative changes between the accessory ossicle and posterior talus. JOINTS: * Tibiotalar: Moderate to severe joint space narrowing with marginal osteophytes and multiple subchondral cysts. Moderate joint effusion. * Subtalar: Mild degenerative changes. * Talonavicular: Within normal limits. * Navicular-cuneiform: Within normal limits. * Calcaneocuboid: Within normal limits. * Tarsal-metatarsal: Within normal limits. SOFT TISSUES: Diffuse soft tissue edema about the ankle and dorsum of the foot. 15 mm ossification posterior to the ankle. There are 2 additional punctate densities more laterally. There are calcifications anterolateral to the ankle which may indicate prior ligamentous injury. MUSCLES: Within normal limits. TENDONS: Large amount of fluid in the FHL tendon sheath above the ankle and at the master knot of Toy. Moderate to severe peroneus longus tenosynovitis and suspected tendinosis. Possible split tear of the peroneus brevis tendon. NEUROVASCULAR: Limited evaluation without IV contrast. Severe vascular calcifications. CT knee: Total knee arthroplasty is present. No periprosthetic fracture or evidence of osteolysis. Small joint effusion with diffuse synovitis. Procedure Note Eddie Tyson MD - 09/14/2024 CT ANKLE WO CONTRAST LEFT DATE: 09/14/2024 10:51 AM HISTORY: Bone mass or bone pain, ankle, aggressive features on xray. 64-year-old male with ankle pain TECHNIQUE: 0.625 mm axial images of the left ankle with 2-D sagittal and coronal reformatted images without intravenous contrast. Exam performed with adjustment of mA according to the patient size and/or the use of Iterative Reconstruction Technique. Zubican Protocol COMPARISON: X-ray 04/22/2024 FINDINGS: BONES: Mineralization is within normal limits. Plantar and posterior calcaneal spurs. Scattered bone islands. No acute fracture. Moderate-sized os trigonum with degenerative changes between the accessory ossicle and posterior talus. JOINTS: * Tibiotalar: Moderate to severe joint space narrowing with marginal osteophytes and multiple subchondral cysts. Moderate joint effusion. * Subtalar: Mild degenerative changes. * Talonavicular: Within normal limits. * Navicular-cuneiform: Within normal limits. * Calcaneocuboid: Within normal limits. * Tarsal-metatarsal: Within normal limits. SOFT TISSUES: Diffuse soft tissue edema about the ankle and dorsum of the foot. 15 mm ossification posterior to the ankle. There are 2 additional punctate densities more laterally. There are calcifications anterolateral to the ankle which may indicate prior ligamentous injury. MUSCLES: Within normal limits. TENDONS: Large amount of fluid in the FHL tendon sheath above the ankle and at the master knot of Toy. Moderate to severe peroneus longus tenosynovitis and suspected tendinosis. Possible split tear of the peroneus brevis tendon. NEUROVASCULAR: Limited evaluation without IV contrast. Severe vascular calcifications. CT knee: Total knee arthroplasty is present. No periprosthetic fracture or evidence of osteolysis. Small joint effusion with diffuse synovitis. IMPRESSION: 1. 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 2. Multiple ossifications posterior to the ankle may represent loose bodies in the joint or within the FHL tendon sheath. 3. Severe FHL tenosynovitis. 4. Peroneus longus tendinosis and tenosynovitis. 5. Possible split tear of the peroneus brevis tendon. 6. Left total knee arthroplasty with nonspecific joint effusion. DICTATION LOCATION: [address] [place] Sandra Stallings MD CT ORDERABLES Final Result from Last 3 Months Insurance [employer]ET[employer] PPO [facility] RX AETNA Medicare Part D RX [employer] (INTERNAL) [facility] Internal Plans Advance Directives For more information, please contact: [phone] * Full Code (Latest Code Status on File) Date Activated Date Inactivated Comments 10/27/2024 6:04 AM 10/27/2024 3:10 PM
== END 2024-11-11 12:30 | disposition home or self-care (01) ==
LOC: ANHLAB 11-12 12:30
PROVIDERS: Visit Provider Plastic Surgery
DX: D48.5 Neoplasm of uncertain behavior of skin (principal)
CPT/HCPCS: 88305